=== PATIENT | female | born 1980 | race Caucasian/White ===

== ENCOUNTER 2019-11-09 16:22 | Outpatient (CLI) | payer OTHER, SELFPAY ==
--- NOTE | ~2019-11-09 | US_ITS ---
EXAMINATION: US OB <= 14 weeks fetus DATE: 11/09/2019 17:00 INDICATION: with inconclusive viability during early second trimester TECHNIQUE: Real-time pelvic ultrasound utilizing transabdominal probe was performed. The janet kang radiologist was not present for the study. COMPARISON: None. FINDINGS: There is a single living fetus in breech presentation. The placenta is fundal. There is no evident f etal heart motion on color Doppler consistent with demise. The amniotic fluid is subjectively n ormal. There are at least 6 hypoechoic uterine fibroids the largest measuring up to 5.9 cm and 4.2 cm . The left and right ovaries are not visualized. The following biometric data were obtained: BPD: 2.3 cm -> 13 weeks 6 days Head circumference: 8.3 cm -> 13 weeks 4 days Abdominal circumference: 7.8 cm -> 14 weeks 1 days Femur length: 1.2 cm -> 13 weeks 4 days These measurements are concordant. Head circumference to abdominal circumference ratio: 1.06 (normal range 1.10-1.34). Estimated weight: 84 g (+/-) 13 g. IMPRESSION: 1. Single fetus of 13 weeks and 6 days estimated gestational age with no discernible heart motion on color Doppler consistent with demise. 2. Fibroid uterus. Reviewed, dictated and finalized at location A. IMPRESSION: 1. Single fetus of 13 weeks and 6 days estimated gestational age with no discer nible heart motion on color Doppler consistent with demise. 2. Fibroid uterus.
== END 2019-11-09 16:23 | disposition home or self-care (01) ==
PROVIDERS: PCP Internal Medicine; Visit Provider Obstetrics & Gynecology
DX: Z34.91 Encounter for supervision of normal pregnancy, unspecified, first trimester (principal); Z3A.13 13 weeks gestation of pregnancy
CPT/HCPCS: 76801

== ENCOUNTER 2019-11-15 07:08 | Inpatient (IN) | payer OTHER, SELFPAY ==
[2019-11-15] VITALS (114 sets, daily range): BP systolic 81–131; BP diastolic 30–74; PULSE 65–178; RESP 16–20; TEMP 36.4–38.1; O2SAT 97–100; BMI 24.9
[2019-11-15 08:35] LABS: Basophils Percent Auto 0.6 % (0.2-1.2); Eosinophils Absolute Auto 0.1 K/mm3 (0-0.3); Eosinophils Percent Auto 1.6 % (0-4.4); Hematocrit 35.9 % (37.0-47.0); Hemoglobin 12.5 g/dL (12.0-15.0); Immature Granulocyte Absolute 0.02 K/mm3 (0.00-0.031); Immature Granulocyte Percent A 0.4 % (0-0.5); Lymphocytes Absolute Auto 0.97 K/mm3 (0.9-3.2); Lymphocytes Percent Auto 19.6 % (18.3-44.2); Mean Corpuscular HGB Conc 34.8 g/dl (32-36); Mean Corpuscular Hemoglobin 31.7 pg (26-34); Mean Corpuscular Volume 91.1 fl (80-100); Mean Platelet Volume 10.4 fl (7.4-10.4); Monocytes Absolute Auto 0.4 K/mm3 (0.1-0.6); Monocytes Percent Auto 8.7 % (2.6-8.5); Neutrophils Absolute Auto 3.4 K/mm3 (1.3-6.7); Neutrophils Percent Auto 69.1 % (45.5-73.1); Platelet Count Result 217 k/mm3 (150-375); Red Blood Count 3.94 M/mm3 (4.2-5.4)
[2019-11-15 08:49] LABS: Glucose 98 mg/dL (65-105)
[2019-11-15 09:29] LABS: HIV 1/2 Ab P24 Ag Result Negative (Negative)
[2019-11-15] MEDS: miSOPROStol 200 MCG TABLET 400 MCG VAGINAL (09:29)
[2019-11-15 09:49] LABS: Free T4 Free Thyroxine 0.96 ng/mL (0.78-2.19)
[2019-11-15] MEDS: ACETAMINOPHEN 325 MG TABLET 650 MG PO (13:10)
--- NOTE | 2019-11-15 15:10 | WPDANESEPP ---
Anes - Eval Pre Procedure Procedure: labor epidural Date/Time: 11/15/19 15:10 Surgeon: Dr Galarza Preop Diagnosis: IUFD, labor pain Pre Op Diagnosis: demise Patient Data Age: 39 Gender: F Height: 5 ft 6 in Weight: 70 kg Last Vital Signs Temp 37.7 C H 11/15/19 15:07 Pulse 75 11/15/19 15:09 BP 109/50 L 11/15/19 15:09 Pulse Ox 100 11/15/19 15:10 Allergies Allergy/AdvReac Type Severity Reaction Status Date / Time latex Allergy Intermediate rash Verified 11/10/19 10:07 Penicillins Allergy Intermediate hives Verified 11/10/19 10:07 mahamed Allergy Swelling Verified 11/15/19 11:11 Home Medications Medication Instructions Recorded Confirmed Type No Home Medications 11/09/19 11/09/19 History Laboratory Tests 11/15/19 11/15/19 11/15/19 08:26 08:26 08:26 WBC 5.0 K/mm3 K/mm3 (4.5-10.0) RBC 3.94 M/mm3 L M/mm3 (4.2-5.4) Hgb 12.5 g/dL g/dL (12.0-15.0) Hct 35.9 % L % (37.0-47.0) MCV 91.1 fl fl (80-100) MCH 31.7 pg pg (26-34) MCHC 34.8 g/dl g/dl (32-36) RDW 13.0 % % (11.5-14.5) Plt Count 217 k/mm3 k/mm3 (150-375) MPV 10.4 fl fl (7.4-10.4) Immature Gran % (Auto) 0.4 % % (0-0.5) Neut % (Auto) 69.1 % % (45.5-73.1) Lymph % (Auto) 19.6 % % (18.3-44.2) [place] % (Auto) 8.7 % H % (2.6-8.5) Eos % (Auto) 1.6 % % (0-4.4) Baso % (Auto) 0.6 % % (0.2-1.2) Lymph # (Auto) 0.97 K/mm3 K/mm3 (0.9-3.2) [place] # (Auto) 0.4 K/mm3 K/mm3 (0.1-0.6) Eos # (Auto) 0.1 K/mm3 K/mm3 (0-0.3) Baso # (Auto) 0.0 K/mm3 K/mm3 (0.0-0.1) Abs Immat Gran (auto) 0.02 K/mm3 K/mm3 (0.00-0.031) Absolute Neuts (auto) 3.4 K/mm3 K/mm3 (1.3-6.7) Absolute Nucleated RBC 0.0 K/mm3 K/mm3 (0.0-0.012) Nucleated RBC % 0.0 % % (0.0-0.2) LA PTT Screen Pending dRVVT Screen Pending dRVVT Additional Test Pending Lupus Anticoag Interp Pending Glucose 98 mg/dL mg/dL (65-105) TSH 1.790 uIU/mL uIU/mL (0.465-4.680) Free T4 Beta-2-GPI IgG Ab Beta-2-GPI IgA Ab Beta-2-GPI IgM Ab Anti-Cardiolipin IgG Ab Anti-Cardiolipin IgA Ab Anti-Cardiolipin IgM Ab RPR CMV IgG Ab CMV IgM Ab HIV 1&2 Ab/P24 Ag 4thGn Blood Type Antibody Screen KB Hemoglobin 11/15/19 11/15/19 11/15/19 08:26 08:26 08:26 WBC RBC Hgb Hct MCV MCH MCHC RDW Plt Count MPV Immature Gran % (Auto) Neut % (Auto) Lymph % (Auto) [place] % (Auto) Eos % (Auto) Baso % (Auto) Lymph # (Auto) [place] # (Auto) Eos # (Auto) Baso # (Auto) Abs Immat Gran (auto) Absolute Neuts (auto) Absolute Nucleated RBC Nucleated RBC % LA PTT Screen dRVVT Screen dRVVT Additional Test Lupus Anticoag Interp Glucose TSH Free T4 0.96 ng/mL ng/mL (0.78-2.19) Beta-2-GPI IgG Ab Pending Beta-2-GPI IgA Ab Pending Beta-2-GPI IgM Ab Pending Anti-Cardiolipin IgG Ab Anti-Cardiolipin IgA Ab Anti-Cardiolipin IgM Ab RPR Pending CMV IgG Ab Pending CMV IgM Ab Pending HIV 1&2 Ab/P24 Ag 4thGn Blood Type Antibody Screen KB Hemoglobin 11/15/19 11/15/19 11/15/19 08:26 08:27 08:27 WBC
[2019-11-15] MEDS: LACTATED RINGERS 1,000 ML 30 ML IV CONT (16:45)
--- NOTE | 2019-11-15 16:47 | PM.IMHP ---
H&P: HPI History of Present Illness Date/Time: 11/15/19 16:47 Patient is a 39 year old LMP 07/31/19 with LU 05/07/19 who presented to L&D for IOL secondary to IUFD. Patient was seen in the office for an initial OB visit on 11/09/19. Uterine size was seemingly large for presumed gestational age and heart tones were unable to be obtained with doppler. Patient was sent for an ultrasound which confirmed an IUFD measuring 13w6d as well as a fibroid uterus. Discussion had with patient regarding management options and decision was made to admit patient for a scheduled induction of labor. Patient was admitted to L&D and induction of labor was started with cytotec. Patient received cytotec 400mcg vaginally x 1 dose. She became uncomfortable and requested an epidural for pain management, which was placed. Patient delivered fetus by RN at ?. This MD was notified and came to hospital. Upon arrival, fetus was wrapped in blanket. The cord had been clamped and cut and was protruding though patient's vagina. Patient was repositioned in dorsal lithotomy for a thorough exam. On bimanual exam, cervical os was noted to be almost closed and barely fingertip dilated and firm. Unable to dilate cervix manually at bedside. Patient also mildly-moderately uncomfortable during bimanual exam, even with epidural. Patient's last temp just prior to delivery was also slightly elevated at 100.5. Discussion had with patient regarding the undelivered placenta and best way to evacuate the uterus. Decision made to proceed with a suction dilation and curettage. Chief complaint: demise Narrative: Julia Clemente is a 39 year old female Review of Systems Review of Systems: All systems reviewed & are unremarkable except as noted in HPI and below Constitutional: Constitutional: Reports as per HPI, Reports no additional constitutional complaints, Denies chills, Denies fever(s), Denies headache(s) and Denies night sweats Eyes: Eyes: Reports as per HPI and Reports no additional eye complaints ENT: Reports system reviewed and no additional complaints, except as documented, Reports as per HPI, Reports Normal hearing present and Denies headache(s) Cardiovascular: Cardiovascular: Reports as per HPI, Reports no additional cardiovascular complaints, Denies chest pain and Denies dyspnea Respiratory: Respiratory: Reports as per HPI, Reports no additional respiratory complaints, Denies cough and Denies dyspnea Gastrointestinal: Gastrointestinal: Reports as per HPI, Reports no additional gastrointestinal complaints, Denies abdominal pain, Denies change in bowel habits, Denies change in stool character, Denies nausea and Denies vomiting Genitourinary: Genitourinary: Reports no additional female genitourinary complaints, Reports as per HPI, Denies abnormal vaginal bleeding, Denies genital lesions, Denies hot flashes, Denies dyspareunia, Denies pelvic pain, Denies sexual dysfunction, Denies urinary incontinence, Denies vaginal discharge, Denies vaginal dryness and Denies vaginal odor Musculoskeletal: Musculoskeletal: Reports no additional musculoskeletal complaints and Reports as per HPI Integumentary/Breasts: Skin/Breast: Reports system reviewed and no additional complaints, except as docu, Reports as per HPI, Denies breast pain and Denies nipple discharge Neurologic: Reports system reviewed and no additional complaints, except as documented, Reports as per HPI, Reports Normal hearing present and Denies headache(s) Psychiatric: Psychiatric: Reports no additional psychiatric complaints, Reports as per HPI, Denies anxiety and Denies depression Endocrine: Endocrine: Reports no additional endocrine complaints and Reports as per HPI Hematologic/Lymphatic: Hematologic/Lymphatic: Reports no additional hematologic/lymphatic complaints and Reports as per HPI Allergic/Immunologic: Allergic/Immunologic: Reports no additional allergic/immunologic complaints and Reports as per HPI PMFSH Past Medical History M
--- NOTE | 2019-11-15 16:49 | WPDANESEFPP ---
Anes - Eval Final PreProcedure Day of Procedure 11/15/19 16:49 Patient weight: normal Heart: regular rate and rhythm Lungs: clear to auscultation and normal air movement Airway: Mallampati scale class II Neurological: alert and oriented Last oral intake: >/= 8 hours ASA classification: II Emergent: yes Anesthetic plan: proceed Anesthesia type and monitoring: regional epidural and standard monitoring Informed Consent: The patient's anesthetic plan and its attendant risks and benefits were discussed with the patient/family/POA. Questions were solicited and answers provided to the satisfaction of the patient/family/POA.
--- NOTE | 2019-11-15 17:25 | PC.NURSE ---
Instrumentation Chemist notified of demise.
--- NOTE | 2019-11-15 17:41 | P.PNOB_ITS ---
OB - PN: Subj Subjective Date/time seen: 11/15/19 0645 I talked with patient. She just had SROM. Discussed pain options. She has opted for epidural. Continue cytotec if needed after epidural. OB - PN: Obj Data Labs CBC & Chem 7: 11/15/19 08:26 11/15/19 08:26 Labs: Laboratory Results - last 24 hr 11/15/19 11/15/19 11/15/19 08:26 08:26 08:26 WBC 5.0 RBC 3.94 L Hgb 12.5 Hct 35.9 L MCV 91.1 MCH 31.7 MCHC 34.8 RDW 13.0 Plt Count 217 MPV 10.4 Immature Gran % (Auto) 0.4 Neut % (Auto) 69.1 Lymph % (Auto) 19.6 White % (Auto) 8.7 H Eos % (Auto) 1.6 Baso % (Auto) 0.6 Lymph # (Auto) 0.97 White # (Auto) 0.4 Eos # (Auto) 0.1 Baso # (Auto) 0.0 Abs Immat Gran (auto) 0.02 Absolute Neuts (auto) 3.4 Absolute Nucleated RBC 0.0 Nucleated RBC % 0.0 Glucose 98 TSH 1.790 Free T4 0.96 HIV 1&2 Ab/P24 Ag 4thGn Blood Type Antibody Screen KB Hemoglobin 11/15/19 11/15/19 08:26 08:27 WBC RBC Hgb Hct MCV MCH MCHC RDW Plt Count MPV Immature Gran % (Auto) Neut % (Auto) Lymph % (Auto) White % (Auto) Eos % (Auto) Baso % (Auto) Lymph # (Auto) White # (Auto) Eos # (Auto) Baso # (Auto) Abs Immat Gran (auto) Absolute Neuts (auto) Absolute Nucleated RBC Nucleated RBC % Glucose TSH Free T4 HIV 1&2 Ab/P24 Ag 4thGn Negative Blood Type A Positive Antibody Screen Negative KB Hemoglobin Negative OB - PN A/P Time Spent With Patient Time: Total time spent is greater than 50% in coordination of care (as documented) at patient's floor/unit and/or counseling patient:
--- NOTE | 2019-11-15 18:03 | P.OP_ITS ---
Procedure Note - Detailed Date of procedure: 11/15/19 Pre-op diagnosis: demise retained products of conception Post-op diagnosis: same Procedure performed: Suction dilation and curettage Description of procedure: The patient was taken to the operating room where she was transferred to the operating room table. Patient was placed in dorsal supine position. Anesthesia was administered and found to be adequate. Patient was repositioned in dorsal lithotomy position using Alex stirrups. She was prepped and draped in the usual sterile fashion. A silicone catheter was used to drain the bladder for 100 cc of light yellow urine. A bivalve speculum was inserted into the vagina. The cervix was well visualized. The anterior lip of the cervix grasped with a single-tooth tenaculum. A paracervical block was performed with 1% lidocaine. 5 cc of lidocaine was administered on either side for a total of 10 cc. The cervix was serially dilated to accommodate a size 9 rigid suction curette. The curette was introduced into the endometrial cavity and connected to suction tubing. The suction device was activated and the curette was rotated to clear the cavity of products of conception. The cavity was noticeably distorted by palpable fibroids. A scant amount of products of conception was obtained. The amount of products of conception was seemingly less than expected and an ultrasound was requested and brought into the operating room. Ultrasound was performed and under ultrasound guidance, the curette was reintroduced into the endometrial cavity and rotated. A Espinoza uterine sharp curette was also introduced into the cavity and all quadrants were explored. A gritty texture was noted in every aspect along the cavity. Procedure was deemed complete. The tenaculum was removed from the anterior lip of the cervix. A minimal amount of oozing was noted from one of the tenaculum puncture sites. Bleeding was made hemostatic with silver nitrate. The vagina was cleansed and dried. The bivalve speculum was removed. The remainder of the patient was cleansed and dried. She was taken out of the dorsal lithotomy position and awakened from anesthesia without difficulty. She was transported to the [facility] in stable condition. All instrument counts were correct at the end of the procedure. Anesthesia: MAC and epidural Surgeon: Anna Tineo MD Estimated blood loss (mL): 20 IV fluids (mL): 800 Urine output (mL): 400 Drains: No Packing: No Pathology: yes (products of conception) Complications: No immediate complications Condition: stable Disposition: PACU
--- NOTE | 2019-11-15 18:35 | SUR.PHASEI ---
[id number] sbar faxed floor notified
--- NOTE | 2019-11-15 19:10 | PC.NURSE ---
Patient arrived to OB unit. Patient sleeping upon arrival, patient aroused by voice. Patient alert and oriented x4. Patient denies pain. Lung sounds are clear. Bowel sounds active x4 quadrants. Lochia is scant. Patient states legs are numb and is unable to move them.
[2019-11-15] MEDS: IBUPROFEN 600 MG TABLET PO (20:12)
--- NOTE | 2019-11-15 20:18 | PC.NURSE ---
Patient tolerating clear liquids without complaint of nausea/emesis.
--- NOTE | 2019-11-16 00:55 | PC.NURSE ---
Pt ambulated to bathroom. pt had clot the size of a golf ball. No active bleeding noted.
[2019-11-16 07:53] VITALS: BP 111/63; PULSE 69
[2019-11-16] MEDS: IBUPROFEN 600 MG TABLET PO ×2 (07:54→13:51)
[2019-11-16 08:07] VITALS: TEMP 36.9
--- NOTE | 2019-11-16 08:35 | PC.NURSE ---
Met with pt and her yesterday; Share program and support presented to them. They seemed attentive to the information, and appreciative, but pt stated I'll be fine . Initially pt did not give consent for pictures to be taken of the baby. After delivery, pt and briefly held , and then pt asked for photos to be taken of just the baby. Consent signed, and this was done for her. Today, pt alone, her had to work last evening. I visited with pt briefly; with her permission, she was shown several of the things used in the photos yesterday. Mother a little tearful. Share support offered once pt leaves the hospital. Pt declined and consent was not signed. She stated I'll be fine . With pt's consent, the mementos and the pt Share folder of information/handouts, including Share contact information, were shown to her and left at the bedside; pt given the option to take them home with her or leave them. Nurse reassured pt that if pt wants to contact me at any point, she is welcome to do so. Pt voiced understanding.
--- NOTE | 2019-11-16 08:57 | PC.NURSE ---
0840--Epidural cath pulled, tip intact, bandaid applied, site WNL.
[2019-11-16 09:05] LABS: Rapid Plasma Reagin Non-Reactive (NonReactive)
--- NOTE | 2019-11-16 09:50 | PM.OBPNVD ---
OB - PN: Subj Subjective Date/time seen: 11/16/19 09:50 Pt seen at bedside. Reports mild lower abdominal pain and mild back pain from epidural placement. Passed two moderate sized blood clots overnight. Denies any further bleeding. Denies any headache, chest pain, SOB, N/V. OB - PN: Obj Data Labs CBC & Chem 7: 11/15/19 08:26 11/15/19 08:26 Labs: Laboratory Results - last 24 hr 11/15/19 11/15/19 08:26 08:27 RPR Non-reactive KB Hemoglobin Negative OB - PN A/P Assessment and Plan (1) IUFD at less than 20 weeks of gestation: Code(s): O02.1 - Missed Status: Acute Assessment and Plan: pt doing well may be discharged home in stable condition f/u in office in 1 week (2) S/P dilation and curettage: Code(s): Z98.890 - Other specified postprocedural states Status: Acute Time Spent With Patient Time: Total time spent is greater than 50% in coordination of care (as documented) at patient's floor/unit and/or counseling patient: Exam Const: General: comfortable and no acute distress GI: GI Palp: Yes Soft to palpation and No Tenderness to palpation present (GI) Extrem: Right lower extremity: no edema Left lower extremity: no edema
--- NOTE | 2019-11-16 14:13 | PC.NURSE ---
1330--IV DC'd and DC instructions reviewed with pt., pt. verbalizes understanding.
[2019-11-17 20:50] LABS: Lupus dRVVT 1:1 Mix Interpreta Not Indicated; Lupus dRVVT Screen 42 sec (<=45); PTT-LA Screen 31 sec (<=40)
[2019-11-18 02:53] LABS: Anti Cardio Antibody IgM <12 MPL (<=12); Anti Cardiolipin Antibody IgA <11 APL (<=11); Anti Cardiolipin Antibody IgG <14 GPL (<=14)
[2019-11-18 08:31] LABS: CMV IgM Antibody <30.00 AU/mL (<30.00)
--- NOTE | 2019-12-14 11:57 | PM.OBDSVD ---
DS: Admitting Diagnosis Admitting Diagnosis Admitting Diagnosis: demise OB - DS: Summary OB Procedures : None OB Procedures Intrapartum: Other OB Procedures: : None Peripartum Data Procedures: Procedures Operation Date: 11/15/19 16:30 Actual Procedures Side Surgeon p Suction Dilation Curettage Not Applicable Anna Tineo MD Time Spent with Patient Time attestation: Total time spent providing and/or coordinating discharge services: DS: Data Data Completed and Pending Completed studies during hospitalization: Pending at discharge 11/15/19 17:18 Surgical [PTH] Routine Surgical [PTH] Routine Discharge Plan Discharge Attending physician on discharge: Anna Tineo Consulting providers: Rico Cole Discharging Clinician: Anna Tineo Anticipated Discharge Date/Time: 11/16/19 11:58 Patient Disposition: Home, Self-Care Activity: as tolerated Diet: as tolerated and regular Discharge Instructions: Follow-Up: Appointment with Dr. Galarza November 24 at 3:00 in [facility] to [facility] for a follow-up visit: Appointment Date/Time: at What to expect at your follow-up visit: Call [phone] if you are unable to keep your appointment time. EPISIOTOMY/PERINEAL CARE: * Until bleeding stops, use your hiro bottle after urinating * Change your pad frequently throughout the day * You may take sitz baths several times a day (fill your bathtub with warm water and soak for 20 minutes.) Do NOT bathe in the water * No tub baths until seen by your physician - You may shower BLEEDING: * Each individual will experience vaginal bleeding, but it will vary with each situation and individual woman. * Vaginal bleeding will go thru cycles-from bright red, to pinkish to a white, creamy discharge. This is considered normal. You may also experience a brownish discharge which is also normal. DIET AND NUTRITION: * Eat at least 3 regular, well-balanced meals per day: include all 4 food groups daily. * You may prefer 6 small meals. * Drink 6-8 glasses of water or non-caffeinated beverages per day. * Loss of appetite is common with loss. We encourage you to try to eat; this will help with both your physical and emotional health. ACTIVITY: * Rest as much as possible during the day. * Do not exercise or lift anything heavier than 10 pounds (such as laundry or other children.) * Avoid stairs or driving as much as possible, especially if you are taking pain medication. * Do not put anything into the vagina. No douching, tampons, or sexual activity until seen and released by your physician. * Listen to your body, and do not do what is uncomfortable or painful. EMOTIONAL HEALTH: * This is a very difficult and sad time for you and your family, friends, and other children. It may be helpful to refer to the booklets on loss that you received. * It is okay to be sad and to cry. Denial, anger, and guilt are also normal stages that you and your family may go thru during this time. Each person reaches these stages at their own pace. * Keep the lines of communication open between family and friends, and ask for help if needed. NOTIFY PHYSICIAN IF YOU HAVE ANY QUESTIONS OR IF ANY OF THE FOLLOWING SYMPTOMS OCCUR: * If your episiotomy or incision becomes red, swollen, or more painful than what you have experienced in the hospital. * If your vaginal bleeding becomes foul smelling. * If your vaginal bleeding becomes more heavy than a period or if your bleeding changes from pink to bright red. However, you may pass an occasional walnut-sized clot once or twice for the first week . * If you experience a sharp, shooting pain in you calves. * If you discover a hard, reddened area on your breast or if you experience flu-like symptoms. * If you develop a temperature of 100.4 or greater. * If you are unable to eat or sleep an
== END 2019-11-16 14:05 | disposition home or self-care (01) | DRG 770 ==
PROVIDERS: Admitting Provider Obstetrics & Gynecology; PCP Internal Medicine; Visit Provider Student in an Organized Health Care Education/Training Program
PROC: 10D17ZZ Extraction of Products of Conception, Retained, Via Natural or Artificial Opening (ICD-10-PCS; principal; 2019-11-15 16:30)
DX: O02.1 Missed abortion (principal); Z3A.15 15 weeks gestation of pregnancy; D25.9 Leiomyoma of uterus, unspecified; O34.12 Maternal care for benign tumor of corpus uteri, second trimester
CPT/HCPCS: 36415; 82947; 84439; 84443; 85025; 85460; 85613; 85730; 86146; 86147; 86592; 86644; 86645; 86703; 86850; 86900; 86901; 88233; 88304; 88305; A9270; G0432; J2250; J2704; J2795; J3010; J7120

== ENCOUNTER 2019-11-19 10:23 | Outpatient (CLI) | payer OTHER, SELFPAY ==
[2019-11-19 10:51] LABS: Hematocrit 35.2 % (37.0-47.0); Hemoglobin 12.3 g/dL (12.0-15.0); Mean Corpuscular HGB Conc 34.9 g/dl (32-36); Mean Corpuscular Hemoglobin 32.5 pg (26-34); Mean Corpuscular Volume 92.9 fl (80-100); Platelet Count Result 239 k/mm3 (150-375); Red Blood Count 3.79 M/mm3 (4.2-5.4); Red Cell Distribution Width 12.9 % (11.5-14.5); White Blood Count 11.1 K/mm3 (4.5-10.0)
== END 2019-11-19 10:24 | disposition home or self-care (01) ==
LOC: ANHLAB 10:25
PROVIDERS: PCP Internal Medicine; Visit Provider Student in an Organized Health Care Education/Training Program
DX: O02.1 Missed abortion (principal); Z98.890 Other specified postprocedural states
CPT/HCPCS: 36415; 84702; 85027

== ENCOUNTER 2019-11-20 11:19 | Observation (INO) | payer OTHER, SELFPAY ==
[2019-11-20] VITALS (12 sets, daily range): BP systolic 104–124; BP diastolic 54–87; PULSE 67–97; RESP 12–20; TEMP 36.6–37.3; O2SAT 95–100; BMI 25.8
--- NOTE | ~2019-11-20 | US_ITS ---
EXAMINATION: US pelvic complete DATE: 11/20/2019 13:42 INDICATION: Vaginal bleeding, D&C performed on 11/15/2019 TECHNIQUE: Multiple transabdominal and endovaginal sonographic images of the pelvis were obtained. COMPARISON: None. FINDINGS: The uterus measures 15 x 8 x 11 cm. There are multiple uterine fibroids, the largest of whi ch is a subserosal fibroid in the posterior body of the lower uterus measuring up to 5.2 cm. The echo genic endometrial complex measures 2.5 cm. The right ovary measures 2.3 x 0.9 x 2.4 cm. The left ovar y measures 2.8 x 1.3 x 1.9 cm. There is normal vascular flow in the ovaries. There is no free fluid i n the pelvis. IMPRESSION: 1. Thickened and echogenic endometrial complex which could reflect post procedure hemorrhage versus r etained products of conception. Reviewed, dictated and finalized at location A. IMPRESSION: 1. Thickened and echogenic endometrial complex which could reflect post procedu re hemorrhage versus retained products of conception.
--- NOTE | ~2019-11-20 | XR_ITS ---
EXAMINATION: XR chest 1V portable INDICATION: Fever TECHNIQUE: Portable AP chest at 1202 hours COMPARISON: None available FINDINGS: The lungs are free of acute opacities. There is no pleural effusion or pneumothorax. The ca rdiomediastinal silhouette is normal. The visualized bones and soft tissues are unremarkable. IMPRESSION: 1. No acute cardiopulmonary abnormality. Reviewed, dictated and finalized at location A.
--- NOTE | 2019-11-20 11:22 | ED.GENADULT ---
HPI - General Adult General Chief complaint: Abdominal Pain Stated complaint: Post Op Complications Time Seen by Provider: 11/20/19 11:21 Source: patient Mode of arrival: ambulatory Limitations: no limitations History of Present Illness HPI narrative: The patient is a 39 year old 2012 who presents to the emergency department for evaluation of lower abdominal pain. Patient reportedly had intrauterine demise at 13 weeks, had induction of labor with Dr. Anna Tineo that eventually required dilatation and curettage under generalized anesthesia on 11/17. Patient continues to report pain and cramping. She reports heavy bleeding and clotting. Patient reports continued fevers with maximum temperature 102 Fahrenheit this morning. Patient reports myalgias, headache, back pain. Not currently on any antibiotics. She takes ibuprofen and Tylenol which does greatly relieve her symptoms. She denies any foul-smelling vaginal discharge. Related Data Allergies Allergy/AdvReac Type Severity Reaction Status Date / Time latex Allergy Intermediate rash Verified 11/10/19 10:07 Penicillins Allergy Intermediate hives Verified 11/10/19 10:07 mahamed Allergy Swelling Verified 11/15/19 11:11 Review of Systems Review of Systems: Narrative: CONSTITUTIONAL: Reports fever and chills ENT: Denies rhinorrhea, congestion, sore throat, or otalgia. CARDIOVASCULAR: Denies chest pain, palpitations, or edema. RESPIRATORY: Denies cough or shortness of breath. GASTROINTESTINAL: Reports lower pelvic pain, denies nausea or vomiting GENITOURINARY: Denies dysuria or hematuria. SKIN: Denies rash or itching. MUSCULOSKELETAL: Reports back pain, diffuse joint pain and myalgias NEUROLOGIC: Reports mild headache without numbness, or weakness. [facility] Past Medical History Medical History AVM (arteriovenous malformation) IUFD at less than 20 weeks of gestation Missed No active medical problems Retained products of conception after miscarriage Surgical History Surgical History Hx of brain surgery AVM Dwyane surgery S/P appendectomy S/P dilation and curettage Social History Social History Smoking status: Never smoker Second hand tobacco smoke exposure: Yes Substance use: never Substance use type: does not use Gender identity (if verbalized by the patient): Female Spiritual care concerns: No Exam Narrative: Exam Narrative: GENERAL: Awake, alert, conversant HEAD: Normocephalic, atraumatic. EYES: PERRLA and EOMI. ENT: Nares clear, no rhinorrhea or epistaxis. Mucous membranes moist. NECK: Supple. CHEST: No respiratory distress, breathing even and non labored HEART: Regular rate, sinus rhythm ABDOMEN:Non distended, non tender Pelvic: Labia majora and minora normal without lesions. Vagina with small blood clot present, no brisk bleeding. No cervical motion tenderness. Os dilated to 3 cm. No adnexal tenderness or fullness bilaterally. No mucopurulent discharge present. EXTREMITIES: Normal range of motion. No edema. SKIN: Warm, dry, no rash. NEURO:No focal deficits. Alert and oriented x3 Course Vital Signs Vital signs: Vital Signs Temperature 37.3 C 11/20/19 11:23 Pulse Rate 97 11/20/19 11:23 Respiratory Rate 20 11/20/19 11:23 Pulse Oximetry 96 11/20/19 11:23 Temperature 37.3 C 11/20/19 11:23 Pulse Rate 97 11/20/19 11:23 Respiratory Rate 20 11/20/19 11:23 Pulse Oximetry 96 11/20/19 11:23 Medical Decision Making MDM Narrative Medical decision making narrative: Patient presenting for recurrent fever, abdominal and pelvic pain in the setting of recent dilatation and curettage due to intrauterine demise. The time of assessment, patient's vital signs are stable. She is afebrile, no tachycardia. Laboratory results show stable anemia. We will
[2019-11-20] MEDS: SODIUM CHLORIDE 0.9% IV 1,000 ML 999 ML IV CONT (12:03)
[2019-11-20 12:14] LABS: Basophils Percent Auto 0.3 % (0.2-1.2); Eosinophils Percent Auto 0.1 % (0-4.4); Hematocrit 34.3 % (37.0-47.0); Hemoglobin 11.8 g/dL (12.0-15.0); Immature Granulocyte Absolute 0.04 K/mm3 (0.00-0.031); Immature Granulocyte Percent A 0.4 % (0-0.5); Lymphocytes Absolute Auto 0.49 K/mm3 (0.9-3.2); Lymphocytes Percent Auto 5.3 % (18.3-44.2); Mean Corpuscular HGB Conc 34.4 g/dl (32-36); Mean Corpuscular Hemoglobin 32.1 pg (26-34); Mean Corpuscular Volume 93.2 fl (80-100); Mean Platelet Volume 10.2 fl (7.4-10.4); Monocytes Absolute Auto 0.6 K/mm3 (0.1-0.6); Monocytes Percent Auto 6.3 % (2.6-8.5); Neutrophils Absolute Auto 8.2 K/mm3 (1.3-6.7); Neutrophils Percent Auto 87.6 % (45.5-73.1); Platelet Count Result 223 k/mm3 (150-375); Red Blood Count 3.68 M/mm3 (4.2-5.4); Red Cell Distribution Width 12.8 % (11.5-14.5); White Blood Count 9.3 K/mm3 (4.5-10.0)
[2019-11-20 12:25] LABS: Partial Thromboplastin Time 25.5 SECONDS (22.3-36.8); Prothrombin Time 13.3 Seconds (11.1-14.7)
[2019-11-20 12:32] LABS: Alanine Aminotransferase 9 U/L (4-35); Albumin Level 3.3 g/dL (3.5-5.1); Alkaline Phosphatase 62 U/L (38-126); Anion Gap 6 mmol/L (8-16); Aspartate Amino Transferase 18 U/L (14-36); Bilirubin,Total 0.3 mg/dL (0.2-1.3); Blood Urea Nitrogen 6 mg/dL (7-17); Calcium 8.9 mg/dL (8.4-10.2); Carbon Dioxide 25 mmol/L (22-30); Chloride 101 mmol/L (98-107); Estimated Glomerular Filt Rate > 60; Glucose 124 mg/dL (65-105); Potassium 3.4 mmol/L (3.4-5.0); Sodium 132 mmol/L (137-145)
[2019-11-20 13:05] LABS: Add Urine Microscopic? YES; Appearance Urine Clear (Clear); Bilirubin Urine Negative (Negative); Blood Urine 2+ (Negative); Color Urine Straw (Yellow); Glucose Urine UA Negative (Negative); Ketones Urine Negative (Negative); Leukocyte Esterase Ur 1+ LEU/UL (Negative); Mucus Urine Rare /lpf; Nitrate Urine Negative (Negative); Protein Urine Negative (Negative); RBC Urine 0-2 /hpf (0-2); Squamous Epithelial Cell Urine Occasional /hpf (Few); Urobilinogen Urine Negative mg/dL (<2.0)
[2019-11-20 13:16] LABS: Specific Grav Ur 1.004 (1.001-1.035)
[2019-11-20] MEDS: SODIUM CHLORIDE 0.9% IV 1,000 ML 150 ML IV CONT (15:01)
--- NOTE | 2019-11-20 15:05 | PM.IMHP ---
H&P: HPI History of Present Illness Date/Time: 11/20/19 15:05 Chief complaint: Post Op Complications Narrative: Julia Clemente is a 39 year old female presented to ER due to increasing bleeding, pain and fever at home. She reports passing clots at home. She is status post currettage for retained placenta after delivery of 13-14 week demise by cytotec. During the procedure which was done with ultrasound guided, it was significant for minimal placental tissue. This was confirmed with pathology showing no chorionic villi. She had been informed of risk of retained tissue. She has a large fibroid uterus distorting the endometrial cavity. In ED the ultrasound show 2.5cm of echogenic material possible clot and or retained tissue. She is hemodynamicly stable. No signs of sepsis. Review of Systems Review of Systems: All systems reviewed & are unremarkable except as noted in HPI and below Constitutional: Constitutional: Reports no additional constitutional complaints, Reports fatigue and Reports fever(s) Cardiovascular: Cardiovascular: Denies chest pain and Denies dyspnea Respiratory: Respiratory: Reports no additional respiratory complaints, Reports cough, Denies dyspnea and Reports other Gastrointestinal: Gastrointestinal: Reports abdominal pain Genitourinary: Genitourinary: Reports no additional female genitourinary complaints and Reports as per HPI Musculoskeletal: Musculoskeletal: Reports no additional musculoskeletal complaints Neurologic: Reports system reviewed and no additional complaints, except as documented Psychiatric: Psychiatric: Reports no additional psychiatric complaints Endocrine: Endocrine: Reports no additional endocrine complaints PMF Past Medical History Medical History AVM (arteriovenous malformation) IUFD at less than 20 weeks of gestation Missed No active medical problems Retained products of conception after miscarriage Surgical History Surgical History Hx of brain surgery AVM Dwayne surgery S/P appendectomy S/P dilation and curettage Social History Social History Smoking status: Never smoker Second hand tobacco smoke exposure: Yes Substance use: never Substance use type: does not use Gender identity (if verbalized by the patient): Female Spiritual care concerns: No Meds Home Medications and Allergies Home Medications Medication Instructions Recorded Confirmed Type acetaminophen 1,000 mg PO Q6H PRN tablet 11/16/19 Rx ibuprofen 600 mg PO Q6H PRN tablet 11/16/19 Rx Allergies Allergy/AdvReac Type Severity Reaction Status Date / Time latex Allergy Intermediate rash Verified 11/10/19 10:07 Penicillins Allergy Intermediate hives Verified 11/10/19 10:07 mahamed Allergy Swelling Verified 11/15/19 11:11 Vital Signs Vital Signs - 24 hr 11/20/19 11:23 Temperature 99.1 F Pulse Rate 97 Respiratory Rate 20 Pulse Oximetry 96 Exam Const: General: no acute distress Orientation/consciousness: oriented to person, oriented to place and oriented to time HENMT: Head: normocephalic and atraumatic Ears: hearing grossly normal bilaterally General nose exam: Normal external nose present Eyes: General: appearance normal, both eyes and all related structures Resp: Effort & Inspection: normal respiratory effort Cardio: Rate: regular rate GI: Other: Irregular shape, mild tenderness, palpable uterus approx 16 week, irreg shape Skin: General skin exam: no rashes or lesions noted Neuro: Cognition (Neuro): normal cognition Extrem: General: normal to inspection Psych: Mental Status: mental status grossly normal H&P: Results Labs Labs: Short CBC 11/20/19 Range/Units 12:02 WBC 9.3 (4.5-10.0) K/mm3 Hgb 11.8 L (12.0-15.0) g/dL Hct 34.3 L (37.0-47.0) % Plt Count 223 (15
--- NOTE | 2019-11-20 16:54 | WPDANESEPPF ---
Anes - Initial Pre Proc Eval Procedure: Operation Date: 11/20/19 16:15 Proposed Procedures p Diagnostic Laparoscopy Pos Lap - Dequan Galarza MD s D&C Suction and Sharp - Dequan Galarza MD Date/Time: 11/20/19 16:54 Surgeon: Dequan Galarza MD Pre Op Diagnosis: Post Op Complications Patient Data Age: 39 Gender: F Height: Weight: Last Vital Signs Temp 37.3 C 11/20/19 11:23 Pulse 75 11/20/19 15:30 Resp 18 11/20/19 15:30 BP 120/87 11/20/19 15:30 Pulse Ox 99 11/20/19 15:30 Allergies Allergy/AdvReac Type Severity Reaction Status Date / Time latex Allergy Intermediate rash Verified 11/10/19 10:07 Penicillins Allergy Intermediate hives Verified 11/10/19 10:07 mahamed Allergy Swelling Verified 11/15/19 11:11 Home Medications Medication Instructions Recorded Confirmed Type acetaminophen 1,000 mg PO Q6H PRN tablet 11/16/19 Rx ibuprofen 600 mg PO Q6H PRN tablet 11/16/19 Rx Laboratory Tests 11/20/19 11/20/19 11/20/19 12:02 12:02 12:02 WBC 9.3 K/mm3 K/mm3 (4.5-10.0) RBC 3.68 M/mm3 L M/mm3 (4.2-5.4) Hgb 11.8 g/dL L g/dL (12.0-15.0) Hct 34.3 % L % (37.0-47.0) MCV 93.2 fl fl (80-100) MCH 32.1 pg pg (26-34) MCHC 34.4 g/dl g/dl (32-36) RDW 12.8 % % (11.5-14.5) Plt Count 223 k/mm3 k/mm3 (150-375) MPV 10.2 fl fl (7.4-10.4) Immature Gran % (Auto) 0.4 % % (0-0.5) Neut % (Auto) 87.6 % H % (45.5-73.1) Lymph % (Auto) 5.3 % L % (18.3-44.2) [place] % (Auto) 6.3 % % (2.6-8.5) Eos % (Auto) 0.1 % % (0-4.4) Baso % (Auto) 0.3 % % (0.2-1.2) Lymph # (Auto) 0.49 K/mm3 L K/mm3 (0.9-3.2) [place] # (Auto) 0.6 K/mm3 K/mm3 (0.1-0.6) Eos # (Auto) 0.0 K/mm3 K/mm3 (0-0.3) Baso # (Auto) 0.0 K/mm3 K/mm3 (0.0-0.1) Abs Immat Gran (auto) 0.04 K/mm3 H K/mm3 (0.00-0.031) Absolute Neuts (auto) 8.2 K/mm3 H K/mm3 (1.3-6.7) Absolute Nucleated RBC 0.0 K/mm3 K/mm3 (0.0-0.012) Nucleated RBC % 0.0 % % (0.0-0.2) PT 13.3 Seconds Seconds (11.1-14.7) INR 1.0 APTT 25.5 SECONDS SECONDS (22.3-36.8) Sodium Potassium Chloride Carbon Dioxide Anion Gap BUN Creatinine Estim Creat Clear Calc Estimated GFR Glucose Calcium Total Bilirubin AST ALT Alkaline Phosphatase Total Protein Albumin Urine Color Urine Appearance Urine pH Ur Specific [place] Urine Protein Urine Glucose (UA) Urine Ketones Ur Blood (Man) Urine Nitrate Urine Bilirubin Urine Urobilinogen Leukocyte Esterase Rfl Urine RBC Urine WBC Ur Squamous Epith Cells Urine Mucus C.trachomatis RNA (TMA) Pending N.gonorrhoeae RNA (TMA) Pending Trichomonas Direct ID 11/20/19 11/20/19 11/20/19 12:02 12:05 12:52 WBC RBC Hgb Hct MCV MCH MCHC RDW Plt Count MPV Immature Gran % (Auto) Neut % (Auto) Lymph % (Auto) [place] % (Auto) Eos % (Auto) Baso % (Auto) Lymph # (Auto) [place] # (Auto) Eos # (Auto) Baso # (Auto) Abs Immat Gran (auto) Absolute Neuts (auto) Absolute Nucleated RBC Nucleated RBC % PT INR APTT
[2019-11-20] MEDS: LACTATED RINGERS 1,000 ML 30 ML IV CONT (17:00)
[2019-11-20] MEDS: CLINDAMYCIN 900 MG/NS 50 ML 900 MG/50 ML PIGGYBACK 50 MG IVPB (17:01)
[2019-11-20] MEDS: METHYLERGONOVINE MALEATE 0.2 MG/ML VIAL IM (17:37)
[2019-11-20] MEDS: KETOROLAC 30 MG/ML VIAL (*BKC) IV PUSH (17:52)
--- NOTE | 2019-11-20 18:28 | PM.PROC ---
Procedure Note - Detailed Date of procedure: 11/20/19 Pre-op diagnosis: Retained products of conception Post-op diagnosis: same Procedure performed: 1. Suction and sharp currettage 2. Diagnostic laparoscopy Description of procedure: After informed consent was obtained, patient was taken to recovery room in stable condition. She was prepped and draped in sterile fashion. Attention was turned to abdomen. Lidocaine was injected 2cm above umbilicus. Small horizontal incision was performed. Varess needle was inserted into abdomen, confirmation into abdomen was obtained with free flow of fluid and normal peritoneal pressures. A pneumoperitoneum of 15mmHG was obtained. A 5mm port was inserted under laparoscopic visualization. She was placed in mild Trendelenburg position. A 5mm port was inserted on the left side under laparoscopic position. Attention was then turned to vagina. Speculum was inserted. A single tooth tenaculum was placed on anterior cervix. The cervix easily passed a 8 wu dilator. A size 14 suction cannula passed while visualizing with ultrasound. Some tissue obtained. The sharp currette was passed and more tissue was obtained at the top of the fundus at the extent that the currette could reach and more placental type tissue was obtained. She was given 0.2mg Methergine which did help contract the uterus and be able to palpate the myometrium during the currettage. The sharp currett was passed while observing with the ultrasound and obtaining tissue, until no echogenic material was seen on ultrasound and there was noted to be good cry. No active bleeding from the os. A figure of eight stitch of 2.0 vicryl was used for hemostasis at the tenaculum site on the cervix that did not respond to pressure. Hemostasis was then noted. Anesthesia: GETA Surgeon: Dequan Galarza MD Estimated blood loss (mL): 200 IV fluids (mL): 800 Drains: No Packing: No Pathology: yes (Retained products) Complications: No immediate complications Condition: stable Disposition: PACU Findings: Cervix was dilated without mechanical dilation easily passed 8 wu dilator. Moderate amount of placental tissue located at the fundus of large uterus. Echogenic material seen on during during the procedure. No echogenic material seen after currettage.
[2019-11-20] MEDS: DEXTROSE 5%/0.45% SOD CHL 1,000 ML 125 ML IV CONT (19:57)
--- NOTE | 2019-11-20 21:39 | PC.NURSE ---
This patient, Julia Clemente, was admitted to Medical [facility] [place] at [place]. Patient/family oriented to hospital policies and general routines including ID bracelet, bed and alarms, visiting hours, pain management, procedures, bathroom and other care routines, personal items, smoking policy, room service/diet, and visiting hours. Valuables list has been completed. Information on how to activate the Rapid Response Team has been discussed. Patient/Family are encouraged to report perceived risks to care and to ask questions if they do not understand what they are told or what they should do.
[2019-11-21 01:21] VITALS: BP 101/58; PULSE 71; RESP 16; TEMP 36.3; O2SAT 98
[2019-11-21] MEDS: DEXTROSE 5%/0.45% SOD CHL 1,000 ML 125 ML IV CONT (05:13)
[2019-11-21] MEDS: KETOROLAC 30 MG/ML VIAL (*BKC) IM (05:13)
[2019-11-21 06:00] VITALS: BP 104/49; PULSE 70; RESP 16; TEMP 36.4; O2SAT 99
[2019-11-21 09:56] LABS: Hematocrit 27.9 % (37.0-47.0); Hemoglobin 9.5 g/dL (12.0-15.0); Mean Corpuscular HGB Conc 34.1 g/dl (32-36); Mean Corpuscular Hemoglobin 32.2 pg (26-34); Mean Corpuscular Volume 94.6 fl (80-100); Mean Platelet Volume 10.3 fl (7.4-10.4); Platelet Count Result 207 k/mm3 (150-375); Red Blood Count 2.95 M/mm3 (4.2-5.4); White Blood Count 6.9 K/mm3 (4.5-10.0)
--- NOTE | 2019-11-21 10:27 | PM.GYNPNOP ---
METALLURGIST PROCESS - A/P Assessment and plan (1) Retained products of conception after miscarriage: Code(s): O03.4 - Incomplete spontaneous without complication Status: Acute Assessment and Plan: She is doing well. Scant blood. Post op anemia- asymptomatic. I discussed her procedure with her yesterday and today. Questions answered. Discharge home today. Discharge precautions discussed. Keep follow up appointment this week. Postoperative Procedures: Procedures Operation Date: 11/20/19 16:15 Actual Procedures Side Surgeon p Diagnostic Laparoscopy Dequan Galarza MD s D&C Suction Dequan Galarza MD Time Spent With Patient Time: Total time spent is greater than 50% in coordination of care (as documented) at patient's floor/unit and/or counseling patient: Time with patient: less than 15 minutes METALLURGIST PROCESS- PN:Subj Post-Op Subjective Date/time seen: 11/21/19 10:27 She states adequate pain control. She has ambulated in the room without problems. She tolerated diet. Minimal bleeding. Exam Const: General: no acute distress, alert and awake Resp: Effort & Inspection: normal respiratory effort GI: Other: soft appropriate tenderness at incision site : Other: Uterus nontender Neuro: General: oriented to person, oriented to place and oriented to time Extrem: General: normal to inspection and no calf tenderness Psych: Mental Status: mental status grossly normal METALLURGIST PROCESS - PN: Obj Data Vital Signs Vital Signs: Vital Signs - 24 hr 11/20/19 11:23 11/20/19 13:00 11/20/19 15:30 Temperature 99.1 F Pulse Rate 97 75 75 Respiratory Rate 20 18 18 Blood Pressure 112/65 120/87 Pulse Oximetry 96 100 99 11/20/19 18:11 11/20/19 18:25 11/20/19 18:40 Temperature 98.8 F Pulse Rate 92 89 77 Respiratory Rate 16 16 12 Blood Pressure 124/65 106/61 Pulse Oximetry 100 100 95 11/20/19 18:55 11/20/19 19:10 11/20/19 19:20 Temperature Pulse Rate 78 79 78 Respiratory Rate 15 16 18 Blood Pressure 108/64 104/57 L 104/58 L Pulse Oximetry 96 95 97 11/20/19 19:42 11/20/19 19:57 11/20/19 20:27 Temperature 97.9 F 98.0 F 98.2 F Pulse Rate 67 73 78 Respiratory Rate 16 16 16 Blood Pressure 112/59 L 112/54 L 115/56 L Pulse Oximetry 100 98 98 11/21/19 01:21 11/21/19 06:00 Temperature 97.3 F L 97.5 F L Pulse Rate 71 70 Respiratory Rate 16 16 Blood Pressure 101/58 L 104/49 L Pulse Oximetry 98 99 Intake/Output Intake/Output: Intake & Output 11/18/19 11/19/19 11/20/19 11/21/19 23:59 23:59 23:59 23:59 Intake Total 1608.75 1550 Output Total 3150 Balance 1608.75 -1600 Meds/Results Medications: Active Medications Generic Name Dose Route Start Last Admin Trade Name Freq PRN Reason Stop Dose Admin Acetaminophen 650 mg 11/20/19 20:29 Tylenol Tablet PO Q4H PRN Pain Rated 1-3 Hydrocodone Bitart/Acetaminophen 1 tab 11/20/19 20:32 [place] 5-325 Mg PO Q4H PRN Pain Rated 7-10 Doxycycline Hyclate 100 mg/ 100 mls @ 100 mls/hr 11/20/19 23:00 11/21/19 09:27 Dextrose IVPB 100 mls/hr Q12HR EFREN Administration Acetaminophen 1,000 mg in 100 mls @ 400 mls/hr 11/20/19 20:28 11/21/19 09:38 Ofirmev 1,000 Mg Ivpb IVPB 11/21/19 20:29 Infused Q6H PRN Infusion Pain Rated 1-3 Ibuprofen 600 mg 11/20/19 20:30 Motrin PO Q6H PRN Cramping Ketorolac Tromethamine 30 mg 11/20/19 20:26 11/21/19 05:13 Toradol Inj IM 30 mg Q6H PRN Administration Pain Rated 4-6 Radiology Results: ITS Impressions Chest X-Ray 11/20/19 12:11 IMPRESSION: 1. No acute cardiopulmonary abnormality. Pelvis Ultrasound 11/20/19 13:56 IMPRESSION: 1. Thickened and echogenic endometrial complex which could reflect post procedure hemorrhage versus retained products of conception. Labs CBC & Chem 7: 11/21/19 09:48 11/20/19 12:02 Labs: Laboratory Results - last 24 hr 11/20/19 11/20/19 09/0
--- NOTE | 2019-11-21 10:36 | PM.DS ---
DS: Admitting Diagnosis Admitting Diagnosis Admitting Diagnosis: Retained products of conception DS: Discharge Diagnosis Discharge Diagnosis (1) Retained products of conception after miscarriage: Code(s): O03.4 - Incomplete spontaneous without complication Status: Acute DS: Summary Time Spent with Patient Time attestation: Total time spent providing and/or coordinating discharge services: Exam Const: General: comfortable and no acute distress Eyes: General: appearance normal, both eyes and all related structures Resp: Effort & Inspection: normal respiratory effort GI: GI Palp: Yes Soft to palpation and No Guarding due to palpation present (GI) Other: appropriate incisional tenderness Skin: General skin exam: normal color Extrem: Other: no calf tenderness Psych: Mental Status: mental status grossly normal DS: Data Data Completed and Pending Pending studies at discharge: Pending at discharge 11/20/19 17:25 Surgical [PTH] Routine Labs on day of discharge: Labs from last 24 hours 11/21/19 11/20/19 11/20/19 09:48 12:52 12:05 WBC 6.9 RBC 2.95 L Hgb 9.5 L Hct 27.9 L MCV 94.6 MCH 32.2 MCHC 34.1 RDW 13.0 Plt Count 207 MPV 10.3 Immature Gran % (Auto) Neut % (Auto) Lymph % (Auto) [place] % (Auto) Eos % (Auto) Baso % (Auto) Lymph # (Auto) [place] # (Auto) Eos # (Auto) Baso # (Auto) Abs Immat Gran (auto) Absolute Neuts (auto) Absolute Nucleated RBC Nucleated RBC % PT INR APTT Sodium Potassium Chloride Carbon Dioxide Anion Gap BUN Creatinine Estim Creat Clear Calc Estimated GFR Glucose Calcium Total Bilirubin AST ALT Alkaline Phosphatase Total Protein Albumin Urine Color Straw Urine Appearance Clear Urine pH 6.0 Ur Specific [place] 1.004 Urine Protein Negative Urine Glucose (UA) Negative Urine Ketones Negative Ur Blood (Man) 2+ H Urine Nitrate Negative Urine Bilirubin Negative Urine Urobilinogen Negative Leukocyte Esterase Rfl 1+ H Urine RBC 0-2 Urine WBC 4-6 H Ur Squamous Epith Cells Occasional Urine Mucus Rare C.trachomatis RNA (TMA) N.gonorrhoeae RNA (TMA) Trichomonas Direct ID Negative 11/20/19 11/20/19 11/20/19 12:02 12:02 12:02 WBC 9.3 RBC 3.68 L Hgb 11.8 L Hct 34.3 L MCV 93.2 MCH 32.1 MCHC 34.4 RDW 12.8 Plt Count 223 MPV 10.2 Immature Gran % (Auto) 0.4 Neut % (Auto) 87.6 H Lymph % (Auto) 5.3 L [place] % (Auto) 6.3 Eos % (Auto) 0.1 Baso % (Auto) 0.3 Lymph # (Auto) 0.49 L [place] # (Auto) 0.6 Eos # (Auto) 0.0 Baso # (Auto) 0.0 Abs Immat Gran (auto) 0.04 H Absolute Neuts (auto) 8.2 H Absolute Nucleated RBC 0.0 Nucleated RBC % 0.0 PT 13.3 INR 1.0 APTT 25.5 Sodium 132 L Potassium 3.4 Chloride 101 Carbon Dioxide 25 Anion Gap 6 L BUN 6 L Creatinine 0.60 L Estim Creat Clear Calc Not Reportable Estimated GFR > 60 Glucose 124 H Calcium 8.9 Total Bilirubin 0.3 AST 18 ALT 9 Alkaline Phosphatase 62 Total Protein 6.0 L Albumin 3.3 L Urine Color Urine Appearance Urine pH Ur Specific [place] Urine Protein Urine Glucose (UA) Urine Ketones Ur Blood (Man) Urine Nitrate Urine Bilirubin Urine Urobilinogen Leukocyte Esterase Rfl Urine RBC Urine WBC Ur Squamous Epith Cells Urine Mucus C.trachomatis RNA (TMA) N.gonorrhoeae RNA (TMA) Trichomonas Direct ID 11/20/19 12:02 WBC RBC Hgb Hct MCV MCH MCHC RDW Plt Count MPV Immature Gran % (Auto) Neut % (Auto) Lymph % (Auto) [place] % (Auto) Eos % (Auto) Baso % (Auto) Lymph # (Auto) [place] # (Auto) Eos # (Auto) Baso # (Auto) Abs Immat Gran (auto) Absolute Neuts (auto) Absolute Nucleated
--- NOTE | 2019-11-21 10:50 | WPDANESPN ---
Anes - Prog Note Post-Op Date/Time: 11/21/19 10:50 Cardiovascular status: normal Respiratory status: normal Airway patency: baseline Mental status: baseline Post-Op hydration status: normal Vital Signs: Last Vital Signs Temp 36.4 C L 11/21/19 06:00 Pulse 70 11/21/19 06:00 Resp 16 11/21/19 06:00 BP 104/49 L 11/21/19 06:00 Pulse Ox 99 11/21/19 06:00 Pain Score (VAS): 2 I/O: Intake & Output 11/20/19 11/21/19 11/21/19 23:59 07:59 15:59 Intake Total 558.75 1450 200 Output Total 2550 600 Balance 558.75 -1100 -400 Laboratory Tests 11/21/19 09:48 11/20/19 12:02 11/20/19 11/20/19 11/20/19 12:02 12:02 12:02 WBC 9.3 RBC 3.68 L Hgb 11.8 L Hct 34.3 L MCV 93.2 MCH 32.1 MCHC 34.4 RDW 12.8 Plt Count 223 MPV 10.2 Immature Gran % (Auto) 0.4 Neut % (Auto) 87.6 H Lymph % (Auto) 5.3 L [place] % (Auto) 6.3 Eos % (Auto) 0.1 Baso % (Auto) 0.3 Lymph # (Auto) 0.49 L [place] # (Auto) 0.6 Eos # (Auto) 0.0 Baso # (Auto) 0.0 Abs Immat Gran (auto) 0.04 H Absolute Neuts (auto) 8.2 H Absolute Nucleated RBC 0.0 Nucleated RBC % 0.0 PT 13.3 INR 1.0 APTT 25.5 Sodium Potassium Chloride Carbon Dioxide Anion Gap BUN Creatinine Estim Creat Clear Calc Estimated GFR Glucose Calcium Total Bilirubin AST ALT Alkaline Phosphatase Total Protein Albumin Urine Color Urine Appearance Urine pH Ur Specific [place] Urine Protein Urine Glucose (UA) Urine Ketones Ur Blood (Man) Urine Nitrate Urine Bilirubin Urine Urobilinogen Leukocyte Esterase Rfl Urine RBC Urine WBC Ur Squamous Epith Cells Urine Mucus C.trachomatis RNA (TMA) Pending N.gonorrhoeae RNA (TMA) Pending Trichomonas Direct ID 11/20/19 11/20/19 11/20/19 12:02 12:05 12:52 WBC RBC Hgb Hct MCV MCH MCHC RDW Plt Count MPV Immature Gran % (Auto) Neut % (Auto) Lymph % (Auto) [place] % (Auto) Eos % (Auto) Baso % (Auto) Lymph # (Auto) [place] # (Auto) Eos # (Auto) Baso # (Auto) Abs Immat Gran (auto) Absolute Neuts (auto) Absolute Nucleated RBC Nucleated RBC % PT INR APTT Sodium 132 L Potassium 3.4 Chloride 101 Carbon Dioxide 25 Anion Gap 6 L BUN 6 L Creatinine 0.60 L Estim Creat Clear Calc Not Reportable Estimated GFR > 60 Glucose 124 H Calcium 8.9 Total Bilirubin 0.3 AST 18 ALT 9 Alkaline Phosphatase 62 Total Protein 6.0 L Albumin 3.3 L Urine Color Straw Urine Appearance Clear Urine pH 6.0 Ur Specific [place] 1.004 Urine Protein Negative Urine Glucose (UA) Negative Urine Ketones Negative Ur Blood (Man) 2+ H Urine Nitrate Negative Urine Bilirubin Negative Urine Urobilinogen Negative Leukocyte Esterase Rfl 1+ H Urine RBC 0-2 Urine WBC 4-6 H Ur Squamous Epith Cells Occasional Urine Mucus Rare C.trachomatis RNA (TMA) N.gonorrhoeae RNA (TMA) Trichomonas Direct ID Negative 11/21/19 09:48 WBC 6.9 RBC 2.95 L Hgb 9.5 L Hct 27.9 L MCV 94.6 MCH 32.2 MCHC 34.1 RDW 13.0 Plt Count 207 MPV 10.3 Immature Gran % (Auto) Neut % (Auto) Lymph % (Auto) [place] % (Auto) Eos % (Auto) Baso % (Auto) Lymph # (Auto) [place] # (Auto) Eos # (Auto) Baso # (Auto) Abs Immat Gran (auto) Absolute Neuts (auto) Absolute Nucleated RBC Nucleated RBC % PT INR APTT Sodium Potassium Chloride Carbon Dioxide Anion Gap BUN Creatinine Estim Creat Clear Calc Estimated GFR Glucose Calcium Total Bilirubin AST ALT Alkaline Phosphatase Total Protein Albumin Urine Color Urine Appearance Urine pH Ur Specific [place] Urine Protein Urine Glucose (UA) Urine Ketones Ur Blood (Man) Urine Nitrate Urine Bilirubin Ur
[2019-11-21 11:51] VITALS: BP 104/58; PULSE 74; RESP 16; TEMP 36.7; O2SAT 99
== END 2019-11-21 12:35 | disposition home or self-care (01) ==
LOC: ANHED 14:41 → ANHSURGERY 14:54 → ANH2MED 19:30
PROVIDERS: Admitting Provider Obstetrics & Gynecology; Emergency Provider Emergency Medicine; PCP Internal Medicine; Visit Provider Obstetrics & Gynecology
PROC: (CPT 49320; principal; 2019-11-20 16:15)
PROC: (CPT 59812; 2019-11-20 16:15)
DX: O03.4 Incomplete spontaneous abortion without complication (principal); D25.9 Leiomyoma of uterus, unspecified
CPT/HCPCS: 59812; 49320; 36415; 71045; 76856; 80053; 81001; 85025; 85027; 85610; 85730; 87040; 87070; 87491; 87591; 87808; 88305; 96361; 96365; 96366; 96367; 96372; 96375; 99285; A9270; G0378; J0131; J0330; J0690; J1100; J1580; J1885; J2210; J2250; J2405; J2704; J2710; J3010; J7030; J7120

== ENCOUNTER 2020-01-17 14:53 | Outpatient (CLI) | payer OTHER, SELFPAY ==
--- NOTE | ~2020-01-17 | MR_ITS ---
EXAMINATION: MR pelvis wo/w con DATE: 01/17/2020 16:02 INDICATION: Uterine leiomyoma TECHNIQUE: Magnetic resonance imaging (MRI) of the pelvis was performed without and with 14 mL Multih ance intravenous contrast. Fullfield sequences of the pelvis included axial and coronal T2-weighted S S FSE, coronal 2D FIESTA, axial T1-weighted FSPGR, axial dual-echo T1-weighted FSPGR and axial T1 stefani ghted LAVA. Small field of view sequences included axial, sagittal and coronal T2-weighted FSE cente red on the uterus and adnexa. Postcontrast sequences included a time course axial T1-weighted LAVA w ith fullfield of view of the pelvis. COMPARISON: Ultrasound dated 11/20/2019 FINDINGS: Uterine is enlarged with at least 10 uterine masses with varying enhancement patterns consistent with uterine fibroids. The majority are either nonenhancing or with small amount of peripheral enhancemen t, the largest measuring up tor 3.9 cm. A few are enhancing are predominantly enhancing the largest a posterior subserosal fibroid measuring up to 5.4 cm. These fibroids distort the endometrial complex which does not appear thickened at the lower uterine segment. The endometrial canal at the uterine fu ndus is distended by a region of enhancement with irregular margins measures 3.7 x 2.6 x 3.2 cm. A fe w subcentimeter T2 hyperintense nonenhancing nabothian cysts at the cervix. Tampon within the vaginal vault. Bladder is normal. Visualized portions of the bowels are unremarkable. Trace amount of likely physiologic free fluid in the pelvis. A couple T2 hyperintense nonenhancing follicles at the right o vary with an millimeters nonenhancing T1 hypointense small hemorrhagic cyst at the right ovary. Left ovary is unremarkable. No pathologically enlarged pelvic or inguinal lymphadenopathy. Bones are unrem arkable. IMPRESSION: 1. Fibroid uterus. 2. 3.7 x 2.6 x 2.2 cm enhancing lesion within the endometrial canal at the fundus most likely represe nting a subserosal fibroid or endometrial polyp. Differential would include retained products of conc eption however be considered less likely given the significant. If time elapsed since the . Consider hysteroscopy for further evaluation. Reviewed, dictated and finalized at location A. ANIC ASSISTANT IMPRESSION: 1. Fibroid uterus. 2. 3.7 x 2.6 x 2.2 cm enhancing lesion within the endometrial canal at the fund us most likely representing a subserosal fibroid or endometrial polyp. Differen tial would include retained products of conception however be considered less l ikely given the significant. If time elapsed since the . Consider hyst eroscopy for further evaluation.
[2020-01-17 15:24] LABS: Estimated Glomerular Filt Rate > 60
== END 2020-01-17 14:54 | disposition home or self-care (01) ==
PROVIDERS: PCP Internal Medicine; Visit Provider Obstetrics & Gynecology
DX: D25.9 Leiomyoma of uterus, unspecified (principal)
CPT/HCPCS: 72197; A9577

== ENCOUNTER 2020-04-24 09:18 | Outpatient (CLI) | payer OTHER, SELFPAY ==
[2020-04-25 10:39] LABS: Hematocrit 35.5 % (37.0-47.0); Hemoglobin 11.2 g/dL (12.0-15.0); Mean Corpuscular HGB Conc 31.5 g/dl (32-36); Mean Corpuscular Hemoglobin 27.2 pg (26-34); Mean Corpuscular Volume 86.2 fl (80-100); Mean Platelet Volume 10.8 fl (7.4-10.4); Platelet Count Result 309 k/mm3 (150-375); Red Blood Count 4.12 M/mm3 (4.2-5.4); Red Cell Distribution Width 15.7 % (11.5-14.5); White Blood Count 5.8 K/mm3 (4.5-10.0)
== END 2020-04-24 09:19 | disposition home or self-care (01) ==
LOC: ANHBWCLAB 09:19
PROVIDERS: PCP Internal Medicine; Visit Provider Obstetrics & Gynecology
DX: Z01.818 Encounter for other preprocedural examination (principal)
CPT/HCPCS: 36415; 85027

== ENCOUNTER → 2020-04-29 00:21 | Outpatient (CLI) | payer OTHER, SELFPAY ==
[2020-04-29 19:48] LABS: SARS-CoV-2 RNA PCR Negative
== END ==
PROVIDERS: PCP Internal Medicine; Visit Provider Obstetrics & Gynecology
DX: Z01.812 Encounter for preprocedural laboratory examination (principal); Z20.822 Contact with and (suspected) exposure to COVID-19
CPT/HCPCS: C9803; U0003; U0005

== ENCOUNTER 2020-05-02 12:07 | Outpatient (CLI) | payer OTHER, SELFPAY | END 2020-05-02 12:08 | disposition home or self-care (01) | PROVIDERS: PCP Internal Medicine; Visit Provider Obstetrics & Gynecology | DX: D21.9 Benign neoplasm of connective and other soft tissue, unspecified (principal); Z01.818 Encounter for other preprocedural examination | CPT/HCPCS: 36415; 86850; 86900; 86901 ==

== ENCOUNTER 2020-05-03 10:35 | Inpatient (IN) | payer OTHER, SELFPAY ==
[2020-05-01 08:12] VITALS: BMI 26.2
[2020-05-03] VITALS (17 sets, daily range): BP systolic 97–122; BP diastolic 55–75; PULSE 60–95; RESP 12–20; TEMP 36.1–36.9; O2SAT 97–100
--- NOTE | 2020-05-03 06:19 | PM.IMHP ---
H&P: HPI History of Present Illness Date/Time: 05/03/20 06:19 Chief Complaint: Symptomatic fibroid uterus. Narrative: Julia Clemente is a 40 year old female with history of irregular bleeding and fibroid uterus. She has had irregular bleeding since Nov 2019 after she had a demise and retained placenta. The placenta was retained along where she was noted to have a large fibroid. After the miscarriage she subsequently had two Dand C for retained product. She has had irregular bleeding since then which was improved after second D and C but still present. She has had an MRI which showed approximately 10 fibroids the larges measuring approximately 5.4 cm. There is an area at the fundus which could be fibroid or polyp or retained tissue. This is where the palcenta was most adherent. She has had a regular period over the past two months. She desires future and desires for the fibroids to be removed before attempting . She is aware of the recommended wait time after a myomectomy and possible need for cesearean section. She has been counseled regarding risk of both procedures and benefits. She has been given option of expectant management. She has declined any optoins for hormonal treatment of irregular bleeding in the past and does not want hormonal management in the future if it started back. Review of Systems Review of Systems: All systems reviewed & are unremarkable except as noted in HPI and below Cardiovascular: Cardiovascular: Reports no additional cardiovascular complaints, Denies chest pain and Denies dyspnea Respiratory: Respiratory: Reports no additional respiratory complaints and Denies dyspnea Gastrointestinal: Gastrointestinal: Reports abdominal pain, Denies change in bowel habits, Denies diarrhea, Denies nausea and Denies vomiting Genitourinary: Genitourinary: Reports pelvic pain Musculoskeletal: Musculoskeletal: Reports back pain Integumentary/Breasts: Skin/Breast: Reports system reviewed and no additional complaints, except as docu Neurologic: Reports system reviewed and no additional complaints, except as documented PMFSH Past Medical History Medical History AVM (arteriovenous malformation) IUFD at less than 20 weeks of gestation Missed No active medical problems Retained products of conception after miscarriage Surgical History Surgical History Hx of brain surgery AVM Brain surgery S/P appendectomy S/P dilation and curettage Social History Social History Smoking status: Never smoker Second hand tobacco smoke exposure: Yes Alcohol intake: never Substance use: never Substance use type: does not use Living arrangements: with family Gender identity (if verbalized by the patient): Female Spiritual care concerns: No Meds Home Medications and Allergies Home Medications Medication Instructions Recorded Confirmed Type No Home Medications 02/15/20 05/01/20 History Allergies Allergy/AdvReac Type Severity Reaction Status Date / Time latex Allergy Intermediate rash Verified 05/01/20 08:11 Penicillins Allergy Intermediate hives Verified 05/01/20 08:11 mahamed Allergy Swelling Verified 05/01/20 08:11 Exam Const: Orientation/consciousness: oriented to person and oriented to place HENMT: Head: normal to inspection Eyes: General: appearance normal, both eyes and all related structures Resp: Effort & Inspection: normal respiratory effort Auscultation: clear to auscultation bilaterally Cardio: Rate: regular rate Rhythm: regular rhythm GI: Inspection: normal to inspection GI Palp: No Rebound tenderness present : External Female Exam: normal external appearance Speculum Exam - Vagina: normal appearance of the vagina Speculum Exam - Cervix: normal appearance of the cervix Bimanual
[2020-05-03] MEDS: ACETAMINOPHEN 500 MG TABLET 1000 MG PO (07:06)
[2020-05-03] MEDS: KETOROLAC 15 MG/ML VIAL (*BKC) IV PUSH (07:07)
[2020-05-03] MEDS: LACTATED RINGERS 1,000 ML 30 ML IV CONT ×3 (07:08→11:21)
--- NOTE | 2020-05-03 07:17 | WPDANESEPPF ---
Anes - Initial Pre Proc Eval Procedure: Operation Date: 05/03/20 07:30 Proposed Procedures p Abdominal Myomectomy - Dequan Galarza MD Date/Time: 05/03/20 07:17 Surgeon: Dequan Galarza MD Pre Op Diagnosis: uterine fibroids Patient Data Age: 40 Gender: F Height: 5 ft 6 in Weight: 73.6 kg Last Vital Signs Temp 97.5 F L 05/03/20 06:27 Pulse 83 05/03/20 06:27 Resp 18 05/03/20 06:27 BP 122/75 05/03/20 06:27 Pulse Ox 100 05/03/20 06:27 Allergies Allergy/AdvReac Type Severity Reaction Status Date / Time latex Allergy Intermediate rash Verified 05/01/20 08:11 Penicillins Allergy Intermediate hives Verified 05/01/20 08:11 mahamed Allergy Swelling Verified 05/01/20 08:11 Home Medications Medication Instructions Recorded Confirmed Type No Home Medications 02/15/20 05/03/20 History Patient hx anesthesia problems: none Family hx anesthesia problems: none PMFSH Past Medical History Medical History AVM (arteriovenous malformation) IUFD at less than 20 weeks of gestation Missed No active medical problems Retained products of conception after miscarriage Surgical History Surgical History Hx of brain surgery AVM Brain surgery S/P appendectomy S/P dilation and curettage Social History Social History Smoking status: Never smoker Second hand tobacco smoke exposure: Yes Alcohol intake: never Substance use: never Substance use type: does not use Living arrangements: with family Gender identity (if verbalized by the patient): Female Spiritual care concerns: No Anes - Eval Final PreProcedure Day of Procedure 05/03/20 07:17 Patient weight: normal Heart: regular rate and rhythm Lungs: clear to auscultation Airway: Mallampati scale class II Neurological: alert and oriented Last oral intake: >/= 8 hours ASA classification: II Emergent: no Anesthetic plan: proceed Anesthesia type and monitoring: general ETT and standard monitoring Informed Consent: The patient's anesthetic plan and its attendant risks and benefits were discussed with the patient/family/POA. Questions were solicited and answers provided to the satisfaction of the patient/family/POA.
--- NOTE | 2020-05-03 07:29 | WPDHPUPDATE1 ---
History and Physical Update Update Date/Time: 05/03/20 07:29 History and Physical has been reviewed, including an updated exam of the patient. There are NO changes in the patient's condition. Risks, benefits, and alternatives have been discussed and questions answered. Patient agrees to proceed with procedure.
[2020-05-03] MEDS: GENTAMICIN SULFATE INJ 370 MG in DEXTROSE 5% 100 ML 100 MG IVPB (07:36)
[2020-05-03] MEDS: CLINDAMYCIN 900 MG/D5W 50 ML 900 MG/50 ML PIGGYBACK 50 MG IVPB (07:55)
--- NOTE | 2020-05-03 10:19 | PM.OP ---
Procedure Note - Brief Procedure Note - Brief Date of procedure: 05/03/20 Pre-op diagnosis: uterine fibroids 2. Abnormal uterine bleeding. Post-op diagnosis: same Procedure performed: 1. Diagnostic hysteroscopy. 2. Abdominal myomectomy. Anesthesia: GETA Surgeon: Dequan Galarza MD Sewage Reticulation Drafting Officer: Willi Estimated blood loss (mL): 50 Drains: No Packing: No Pathology: yes (multiple fibroids) Complications: No immediate complications Condition: stable Disposition: PACU Findings: Normal uterine cavity. Multiple intramural fibroids, one small subserosal fibroid. Did enter endometrial cavity with removal of the larger, 5cm posterior lower uterine segment fibroid. Normal appearing fallopian tubes and ovaries.
[2020-05-03] MEDS: fentaNYL CITRATE INJ (*CRX) 100 MCG/2 ML VIAL 25 MCG IV PUSH ×10 (10:40→11:36)
[2020-05-03] MEDS: HYDROmorphone HCL INJ (*CRX) 1 MG/ML SYR 0.5 MG IV PUSH ×6 (11:15→12:05)
--- NOTE | 2020-05-03 11:19 | PM.PROC ---
Procedure Note - Detailed Date of procedure: 05/03/20 Pre-op diagnosis: uterine fibroids 2. Abnormal uterine bleeding Post-op diagnosis: same Procedure performed: 1. Diagnostic hysteroscopy 2. Abdominal myomectomy. Description of procedure: After informed consent was obtained patient was taken to the operating room. General endotracheal anesthesia was administered. She was placed in low lithotomy position and prepped and draped in sterile fashion attention was turned to the vagina speculum was inserted single-tooth tenaculum placed on anterior lip of the cervix the uterus was sounded to 8 cm the cervix was dilated to a 9 Loo dilator. The hysteroscope was inserted the uterine cavity appeared normal there are no lesions there was no proliferative endometrial lining. the hysteroscope was removed. With the new sterile gloves and gown attention was turned to the abdomen a Pfannenstiel skin incision was made with the scalpel. The subcutaneous tissue was dissected down with cautery. The fascia was incised in midline with the scalpel. The fascia was extended bilaterally with Enamorado scissors. The fascia was from rectus muscles superiorly and inferiorly bluntly and sharply. The peritoneum was identified and entered bluntly. The pelvic organs were visualized. Patient was placed in mild Trendelenburg position. The uterus was elevated out of the pelvis with using the uterine manipulator. The uterus was palpated there were 2 larger lower posterior fibroids and there were 2 anterior that were palpated 1 small subserosal and a small lower anterior fibroid was palpated. Attention was turned to the anterior middle uterine area where the to intramural fibroids were palpated. Vasopressin was injected into the muscle area. The vasopressin that was used was 20 units in 100 cc of saline. The anterior uterus over the fibroid was incised with the cautery. This was incised to the point where the fibroid was visualized. The fibroid was grasped with a towel clamp the fibroid was dissected from the surrounding tissue using a Ave clamp. Also used cautery. The area where the vessels supplying the fibroid was clamped and cauterized. In this fibroid was removed. Lateral to this the other fibroid was palpated and this was grasped with the towel clamp this was shelled out using the Ave and the cautery and the vessel that was supplying this was clamped and the fibroid was removed. Could not palpate any fibroids that could be reached from this incision the myometrium was closed with several sutures of 0 Vicryl in a [id number] fashion. Hemostasis was noted. A 2nd layer with 3 stitches of eewwal-oh-kezur of 0 Vicryl were used to approximate the myometrium. Approximation was noted. It was hemostatic. This incision was later closed in a running fashion with a baseball stitch after the posterior fibroids were removed. Attention was then turned to the posterior uterus and to larger lower uterine fibroids were palpated vasopressin was used over the area that was middle of the 2 fibroids incision was made and the larger fibroid on the left was grasped with a towel clamp this was dissected out of the muscle using cautery and also Ave clamp and towel clamps the vessel that was supplying it was clamped and cauterized it did appear that the cavity was entered a small entrance into the cavity with removal of this fibroid. Attention was then turned to the fibroid that was palpated to the right of this incision was made and the Jones in the myometrium through the same incision and the fibroid was grasped with a towel clamp and dissected using Ave and cautery and was removed. Could there was another fibroid that was anterior to this which was palpated and was removed. The myometrium was closed in multiple layers with exsjhi-uv-gxpdn 0 Vicryl. In a 2nd layer of 0 Vicryl was used. The incision was closed the serosa was closed in a baseball fashion with 0 Vicryl hemostasis was noted
[2020-05-03] MEDS: ONDANSETRON INJ 4 MG/2 ML VIAL IV PUSH (11:47)
[2020-05-03] MEDS: diphenhydrAMINE HCl INJ 50 MG/ML VIAL 12.5 MG IV PUSH ×2 (11:48→12:01)
--- NOTE | 2020-05-03 12:35 | PC.NURSE ---
This patient, Julia Clemente, was received from PACU on 05/03/20 at 1235. Patient oriented to unit routines. Pt groggy falling in and out of sleep.
[2020-05-03] MEDS: FENTANYL 600MCG/NS30MLPCA(*CRX 600 MCG/30 ML PCA.VIAL IV CONT (12:53)
[2020-05-03] MEDS: HYDROcodone/acetaminophen (*CRX) 5-325 MG TABLET 1 TAB PO ×2 (19:46→21:20)
[2020-05-03] MEDS: SIMETHICONE 80 MG TAB.CHEW PO (21:20)
[2020-05-03] MEDS: IBUPROFEN 600 MG TABLET PO (21:20)
--- NOTE | 2020-05-03 23:38 | PC.NURSE ---
Pt was able to pedraza at bedside for 20 minutes - pt refused getting to chair due to pain being too much . Pt stated she needs more rest before I get up, I'm so sore and can barely move . RN will attempt to get pt to chair later.
[2020-05-04 00:07] VITALS: BP 101/51; PULSE 94; RESP 18; TEMP 37.1
[2020-05-04 00:38] VITALS: BP 105/64; PULSE 90; RESP 18; TEMP 36.9
[2020-05-04 05:00] VITALS: BP 95/59; PULSE 60; RESP 17; TEMP 36.7
[2020-05-04] MEDS: SIMETHICONE 80 MG TAB.CHEW PO ×3 (05:03→21:37)
[2020-05-04] MEDS: HYDROcodone/acetaminophen (*CRX) 10-325 MG TABLET 1 TAB PO ×5 (05:04→23:37)
[2020-05-04] MEDS: IBUPROFEN 600 MG TABLET PO (05:04)
[2020-05-04 06:45] VITALS: BP 100/58; PULSE 72; RESP 18; TEMP 36.9
--- NOTE | 2020-05-04 07:43 | WPDANESPN ---
Anes - Prog Note Post-Op Date/Time: 05/04/20 07:43 Cardiovascular status: normal Respiratory status: normal Airway patency: baseline Mental status: baseline Post-Op hydration status: normal Vital Signs: Last Vital Signs Temp 36.7 C 05/04/20 05:00 Pulse 60 05/04/20 05:00 Resp 17 05/04/20 05:00 BP 95/59 L 05/04/20 05:00 Pulse Ox 99 05/03/20 19:42 Pain Score (VAS): 0 I/O: Intake & Output 05/03/20 05/03/20 05/04/20 15:59 23:59 07:59 Intake Total 1650 505.5 1500 Output Total 1500 3100 Balance 1650 -994.5 -1600 Post-procedural complaints: none Patient Feedback: Patient satisfied with anesthetic care.
[2020-05-04] MEDS: DOCUSATE SODIUM 100 MG CAPSULE PO ×2 (08:31→17:22)
--- NOTE | 2020-05-04 08:40 | PM.GYNPNOP ---
CLINICAL TRAINING COORDINATOR - A/P Assessment and plan (1) Status post myomectomy: Code(s): Z98.890 - Other specified postprocedural states Status: Acute Assessment and Plan: Encourage ambulation. Will give Toradol IV. Continue oral Stover. Routine post op CBC ordered. Encouraged to advance diet. Postoperative Procedures: Procedures Operation Date: 05/03/20 07:30 Actual Procedures Side Surgeon p Abdominal Myomectomy, hysteroscopy Not Applicable Dequan Galarza MD Time Spent With Patient Time: Total time spent is greater than 50% in coordination of care (as documented) at patient's floor/unit and/or counseling patient: Time with patient: less than 15 minutes CLINICAL TRAINING COORDINATOR- PN:Subj Post-Op Subjective Date/time seen: 05/04/20 08:40 She has not ambulated. She did sat up in chair. Pain is worse with getting up. No flatus. No chest pain. No SOB. No lightheadedness or dizziness. Mild nausea yesterday. Tolerated full liquid. Exam Const: General: comfortable and no acute distress Resp: Effort & Inspection: normal respiratory effort Auscultation: clear to auscultation bilaterally Cardio: Rate: regular rate GI: Other: good BS throughout, appropriate tenderness, slightly distended. Incision intact no drainage. Extrem: Other: nontender, no edema Psych: Mental Status: mental status grossly normal Affect: normal affect CLINICAL TRAINING COORDINATOR - PN: Obj Data Vital Signs Vital Signs: Vital Signs - 24 hr 05/03/20 10:20 05/03/20 10:30 05/03/20 10:45 Temperature 97 F L Pulse Rate 77 80 60 Respiratory Rate 12 12 12 Blood Pressure 105/63 103/59 L 106/64 Pulse Oximetry 100 100 100 05/03/20 11:00 05/03/20 11:15 05/03/20 11:30 Temperature Pulse Rate 68 66 69 Respiratory Rate 12 12 16 Blood Pressure 97/61 L 102/60 105/55 L Pulse Oximetry 98 100 100 05/03/20 11:45 05/03/20 12:00 05/03/20 12:10 Temperature Pulse Rate 74 75 90 Respiratory Rate 12 12 18 Blood Pressure 107/64 103/60 99/65 L Pulse Oximetry 100 99 99 05/03/20 12:53 05/03/20 14:15 05/03/20 15:45 Temperature 97.6 F 98.4 F 98.5 F Pulse Rate 75 84 82 Respiratory Rate 16 16 16 Blood Pressure 105/62 107/67 120/66 Pulse Oximetry 97 100 100 05/03/20 15:54 05/03/20 17:30 05/03/20 17:45 Temperature 98.3 F Pulse Rate 95 Respiratory Rate 18 18 Blood Pressure 102/63 Pulse Oximetry 100 05/03/20 19:42 05/04/20 00:07 05/04/20 00:38 Temperature 98.7 F 98.5 F Pulse Rate 94 90 Respiratory Rate 17 18 18 Blood Pressure 101/51 L 105/64 Pulse Oximetry 99 05/04/20 05:00 Temperature 98.1 F Pulse Rate 60 Respiratory Rate 17 Blood Pressure 95/59 L Pulse Oximetry Intake/Output Intake/Output: Intake & Output 05/01/20 05/02/20 05/03/20 05/04/20 23:59 23:59 23:59 23:59 Intake Total 2264.75 1500 Output Total 1500 3100 Balance 764.75 -1600 Meds/Results Medications: Active Medications Generic Name Dose Route Start Last Admin Trade Name Freq PRN Reason Stop Dose Admin Hydrocodone Bitart/Acetaminophen 1 tab 05/03/20 10:34 05/03/20 21:20 Hydrocodone/Acetaminophen (*Crx) 5-325 Mg Tablet PO 1 tab Q3H PRN Administration Pain Rated 5 or Less Hydrocodone Bitart/Acetaminophen 1 tab 05/03/20 10:34 05/04/20 08:31 Hydrocodone/Acetaminophen (*Crx) 10-325 Mg Tablet PO 1 tab Q3H PRN Administration Pain Rated 6 or Greater Docusate Sodium 100 mg 05/03/20 17:00 05/04/20 08:31 Docusate Sodium 100 Mg Capsule PO 100 mg BID EFREN Administration Dextrose/Sodium Chloride 1,000 mls @ 125 mls/hr 05/03/20 10:35 05/03/20 19:06 Dextrose 5% Sodium Chloride 0.45% IV CONT Not Given .Q8H EFREN Fentanyl Citrate 600 mcg in 30 mls @ 0 mls/hr 05/03/20 12:04 05/03/20 19:42 Fentanyl 600 Mcg/Ns 30 Ml Museum Attendant IV CONT Infused .Q0M PRN Titration BELT LINE FEEDER Management Protocol Per Protocol Ketorolac Tromethamine 30 mg 05/03/20 10:34 Ketorolac 30 Mg/Ml Vial (*Bk) IV PUSH 05/08/20 10:35 Q6H PRN
[2020-05-04 09:01] LABS: Hematocrit 33.5 % (37.0-47.0); Hemoglobin 10.8 g/dL (12.0-15.0); Mean Corpuscular HGB Conc 32.2 g/dl (32-36); Mean Corpuscular Hemoglobin 27.6 pg (26-34); Mean Corpuscular Volume 85.5 fl (80-100); Platelet Count Result 254 k/mm3 (150-375); Red Blood Count 3.92 M/mm3 (4.2-5.4); Red Cell Distribution Width 15.5 % (11.5-14.5); White Blood Count 10.6 K/mm3 (4.5-10.0)
[2020-05-04] MEDS: KETOROLAC 30 MG/ML VIAL (*BKC) IV PUSH (11:17)
--- NOTE | 2020-05-04 11:37 | PC.NURSE ---
Dr. Galarza called in to check on the patient, update given. No new orders recieved at this time.
--- NOTE | 2020-05-04 13:32 | PC.NURSE ---
Patient up walking the halls.
--- NOTE | 2020-05-04 15:30 | PC.NURSE ---
PT introductions made and plan of care discussed per post conduit mechanic surgery, pain management, daily care activities, abdominal binder. PT verbalized understanding of such care.
[2020-05-04] MEDS: HYDROcodone/acetaminophen (*CRX) 5-325 MG TABLET 1 TAB PO (17:24)
[2020-05-04] MEDS: KETOROLAC 10 MG TABLET PO ×2 (17:25→23:36)
[2020-05-04 19:20] VITALS: BP 118/61; PULSE 74; RESP 18; TEMP 36.5; O2SAT 100
[2020-05-05] MEDS: SIMETHICONE 80 MG TAB.CHEW PO (06:43)
[2020-05-05] MEDS: HYDROcodone/acetaminophen (*CRX) 5-325 MG TABLET 1 TAB PO (06:43)
[2020-05-05] MEDS: DOCUSATE SODIUM 100 MG CAPSULE PO (06:46)
[2020-05-05 07:35] VITALS: BP 106/55; PULSE 77; RESP 18; TEMP 36.8; O2SAT 100
--- NOTE | 2020-05-05 09:34 | P.PNOB_ITS ---
CORE DRILL OPERATOR HELPER - A/P Assessment and plan (1) Status post myomectomy: Code(s): Z98.890 - Other specified postprocedural states Status: Acute Assessment and Plan: She has adequate pain control and tolerating regular diet and ambulating. Will discharge today. Discussed discharge precautions. Postoperative Procedures: Procedures Operation Date: 05/03/20 07:30 Actual Procedures Side Surgeon p Abdominal Myomectomy, hysteroscopy Not Applicable Dequan Galarza MD Time Spent With Patient Time: Total time spent is greater than 50% in coordination of care (as documented) at patient's floor/unit and/or counseling patient: Time with patient: less than 15 minutes CORE DRILL OPERATOR HELPER- PN:Subj Post-Op Subjective Date/time seen: 05/05/20 09:34 She has adequate pain control improving. Tolerating regular diet. She is ambulating well. Positive flatus. No leg pain. Exam Const: General: no acute distress Eyes: General: appearance normal, both eyes and all related structures Neck: Neck: normal visual inspection Resp: Effort & Inspection: normal respiratory effort GI: Inspection: normal to inspection Other: appropriate tenderness to palpation, no rebound, incision intact no drainage or erythema Extrem: General: normal to inspection and no calf tenderness bilaterally CORE DRILL OPERATOR HELPER - PN: Obj Data Vital Signs Vital Signs: Vital Signs - 24 hr 05/04/20 19:20 05/05/20 07:35 Temperature 97.7 F 98.3 F Pulse Rate 74 77 Respiratory Rate 18 18 Blood Pressure 118/61 106/55 L Pulse Oximetry 100 100 Intake/Output Intake/Output: Intake & Output 05/02/20 05/03/20 05/04/20 05/05/20 23:59 23:59 23:59 23:59 Intake Total 2264.75 1500 Output Total 1500 3300 Balance 764.75 -1800 Meds/Results Medications: Active Medications Generic Name Dose Route Start Last Admin Trade Name Freq PRN Reason Stop Dose Admin Hydrocodone Bitart/Acetaminophen 1 tab 05/03/20 10:34 05/05/20 06:43 Hydrocodone/Acetaminophen (*Crx) 5-325 Mg Tablet PO 1 tab Q3H PRN Administration Pain Rated 5 or Less Hydrocodone Bitart/Acetaminophen 1 tab 05/03/20 10:34 05/04/20 23:37 Hydrocodone/Acetaminophen (*Crx) 10-325 Mg Tablet PO 1 tab Q3H PRN Administration Pain Rated 6 or Greater Docusate Sodium 100 mg 05/03/20 17:00 05/05/20 06:46 Docusate Sodium 100 Mg Capsule PO 100 mg BID EFREN Administration Ketorolac Tromethamine 10 mg 05/04/20 07:58 05/04/20 23:36 Ketorolac 10 Mg Tablet PO 10 mg Q6H PRN Administration Cramping Ondansetron HCl 4 mg 05/03/20 10:34 Ondansetron Inj 4 Mg/2 Ml Vial IV PUSH Q6H PRN Nausea And Vomiting Simethicone 80 mg 05/03/20 10:34 05/05/20 06:43 Simethicone 80 Mg Tab.Chew PO 80 mg Q2H PRN Administration Gas Labs CBC & Chem 7: 05/04/20 08:53
--- NOTE | 2020-05-05 11:14 | PM.DS ---
DS: Admitting Diagnosis Admitting Diagnosis Admitting Diagnosis: 1. Symptomatic fibroid uterus. 2. Abnormal uterine bleeding. DS: Discharge Diagnosis Discharge Diagnosis (1) Status post myomectomy: Code(s): Z98.890 - Other specified postprocedural states Status: Acute (2) Irregular intermenstrual bleeding: Code(s): N92.1 - Excessive and frequent menstruation with irregular cycle Status: Acute (3) Fibroid uterus: Code(s): D25.9 - Leiomyoma of uterus, unspecified Status: Acute DS: Summary Hospital Course Reason for hospitalization: Planned hysteroscopy and abdominal myomectomy. Hospital Course: Patient admitted for abdominal myomectomy and hysteroscopy on May 03. She underwent an uncomplicated hysteroscopy which was normal. She also had an abdominal myomectomy. She did well during the surgery. Postoperatively she did well. On postop day 1 she had not ambulated much. She had tolerated clear liquids. On postop day 1 later in the day she did increase her ambulation. She did report positive flatus. She stated her pain was better with heating pad and the medication. On postop day 2 patient was doing better. She tolerated regular food. She had ambulated. No problems with urination. Denies any leg pain. I did show her pictures of her procedure. Her questions were answered. She was tolerating regular food and was recommended for discharge on May 05. Time Spent with Patient Time attestation: Total time spent providing and/or coordinating discharge services: Exam Const: General: no acute distress Eyes: General: appearance normal, both eyes and all related structures GI: Inspection: normal to inspection Other: incision healing well Extrem: Other: nontender, no edema Psych: Appearance: grossly normal DS: Data Data Completed and Pending Completed studies during hospitalization: Pending at discharge 05/03/20 09:17 Surgical [PTH] Routine Discharge Plan Discharge Attending physician on discharge: Dequan Galarza Consulting providers: Ag Morel Discharging Clinician: Dequan Galarza Anticipated Discharge Date/Time: 05/05/20 11:41 Patient Disposition: Home, Self-Care Activity: may shower, no straining, may drive after 2 weeks and pelvic rest Diet: regular Wound Care Instructions: follow printed instructions and incision open to air Discharge Instructions: No lifting bending or straining. Call for temperature greater than 100.4 or any leg pain or redness, or drainage or redness from incision. Take pain medication as prescribed. May take over the counter Ibuprofen 600mg every six hours as needed for pain after have completed the Ketoralac ( Toradol). May take over the counter Tylenol or Extra strength Tylenol if not taking the [place]. Pelvic rest. Take Miralax daily if no bowel movement by post op day four. Patient Instructions: Antibiotic Form Stand Alone Forms: General Discharge Information Follow-up/Referrals: Dequan Galarza MD [Physician] - 1 Week Discharge Medications: New hydrocodone-acetaminophen 5-325 mg Tablet See Rx Instructions .ROUTE .COMPLEX PRN (Reason: Pain ) Qty: 30 RF: 0 ketorolac 10 mg Tablet 10 mg PO Q6H PRN (Reason: pain) 4 Days Qty: 14 RF: 0 No Action No Home Medications RF: 0 Date of admission: 05/03/20 10:35 Primary Care Provider: Fuad,Donnie Valente Admitting Provider: Dequan Galarza Attending physician on admission: Dequan Galarza Condition: Stable
== END 2020-05-05 15:28 | disposition home or self-care (01) | DRG 743 ==
LOC: ANHOB2 12:50
PROVIDERS: Admitting Provider Obstetrics & Gynecology; PCP Internal Medicine; Visit Provider Obstetrics & Gynecology
PROC: 0UT94ZZ Resection of Uterus, Percutaneous Endoscopic Approach (ICD-10-PCS; principal; 2020-05-03 07:30)
DX: D25.1 Intramural leiomyoma of uterus (principal); D25.2 Subserosal leiomyoma of uterus; N92.1 Excessive and frequent menstruation with irregular cycle; Z90.49 Acquired absence of other specified parts of digestive tract
CPT/HCPCS: 36415; 85027; 86850; 86900; 86901; 88305; A9270; J1100; J1170; J1200; J1580; J1885; J2250; J2405; J2704; J2710; J3010; J7030; J7120

== ENCOUNTER 2022-01-08 16:52 | Outpatient (CLI) | payer BC, SELFPAY ==
[2022-01-08 17:09] LABS: Hematocrit 41.2 % (37.0-47.0); Hemoglobin 13.6 g/dL (12.0-15.0); Mean Corpuscular Hemoglobin 30.7 pg (26-34); Mean Platelet Volume 9.7 fl (7.4-10.4); Platelet Count Result 321 k/mm3 (150-375); Red Blood Count 4.43 M/mm3 (4.2-5.4); Red Cell Distribution Width 12.7 % (11.5-14.5); White Blood Count 6.6 K/mm3 (4.5-10.0)
[2022-01-08 18:06] LABS: T4 Thyroxine 9.34 ug/dL (5.53-11.0)
[2022-01-13 10:45] LABS: Testosterone Total 11 ng/dL (2-45)
[2022-01-13 16:12] LABS: FSH 46.3 mIU/mL (***); LH 16.7 mIU/mL (***); Progesterone <0.2 ng/mL (***)
== END 2022-01-08 16:53 | disposition home or self-care (01) ==
LOC: ANHLAB 16:54
PROVIDERS: PCP Internal Medicine; Visit Provider Obstetrics & Gynecology
DX: N92.6 Irregular menstruation, unspecified (principal); N92.0 Excessive and frequent menstruation with regular cycle
CPT/HCPCS: 36415; 83001; 83002; 84144; 84403; 84436; 84443; 85027

== ENCOUNTER 2022-01-15 14:49 | Outpatient (CLI) | payer BC, SELFPAY ==
--- NOTE | ~2022-01-15 | US_ITS ---
EXAMINATION: US pelvic complete w TV DATE: 01/15/2022 16:00 INDICATION: Uterine hypertrophy Comparison:Ultrasound dated 11/20/2019 TECHNIQUE: Multiple transabdominal and endovaginal sonographic images of the pelvis performed. FINDINGS: The uterus measures 9.2 x 4.8 x 5.4 cm. There is a uterine fibroid measuring 1.8 x 1.6 x 1. 6 cm. There are nabothian cysts. The endometrial complex measures 8.5 mm. The right ovary measures 2.4 x 1.2 x 1.4 cm and the left ovary measures 2.1 x 1.2 x 1.0 cm. There ar e small follicles in each ovary. Normal doppler signal in both ovaries. There is no free fluid in the pelvis. There are no abnormal masses seen on either side. IMPRESSION: 1. Uterine fibroid measuring 1.8 cm maximum dimension. Reviewed, dictated and finalized at location A.
== END 2022-01-15 14:50 | disposition home or self-care (01) ==
PROVIDERS: PCP Internal Medicine; Visit Provider Obstetrics & Gynecology
DX: N85.2 Hypertrophy of uterus (principal); D25.9 Leiomyoma of uterus, unspecified
CPT/HCPCS: 76830; 76856

== ENCOUNTER 2023-06-10 13:14 | Outpatient (CLI) | payer OTHER, SELFPAY ==
[2023-06-15 08:52] LABS: FSH 40.2 mIU/mL (***); LH 38.7 mIU/mL (***); Progesterone 0.4 ng/mL (***)
== END 2023-06-10 13:15 | disposition home or self-care (01) ==
LOC: ANHLAB 13:15
PROVIDERS: PCP Internal Medicine; Visit Provider Obstetrics & Gynecology
DX: N92.6 Irregular menstruation, unspecified (principal)
CPT/HCPCS: 36415; 83001; 83002; 84144

== ENCOUNTER 2023-07-04 08:55 | Outpatient (CLI) | payer OTHER, SELFPAY ==
[2023-07-04 09:56] LABS: Alanine Aminotransferase 16 U/L (6-35); Albumin Level 4.1 g/dL (3.5-5.1); Alkaline Phosphatase 54 U/L (38-126); Anion Gap 3 mmol/L (4-12); Aspartate Amino Transferase 26 U/L (14-36); Bilirubin,Total 0.3 mg/dL (0.2-1.3); Blood Urea Nitrogen 17 mg/dL (7-17); Calcium 8.8 mg/dL (8.4-10.2); Carbon Dioxide 28 mmol/L (22-30); Chloride 107 mmol/L (98-107); Cholesterol 188 mg/dL (0-200); Estimated Glomerular Filt Rate > 60; Glucose 96 mg/dL (65-110); HDL Direct 56 mg/dL; Potassium 4.3 mmol/L (3.4-5.0); Sodium 138 mmol/L (137-145); Triglycerides 48 mg/dL (<150)
[2023-07-04 10:07] LABS: LDL Cholesterol Direct 114 mg/dL
== END 2023-07-04 08:56 | disposition home or self-care (01) ==
LOC: ANHLAB 08:58
PROVIDERS: PCP Internal Medicine; Visit Provider Internal Medicine
DX: Z00.00 Encounter for general adult medical examination without abnormal findings (principal)
CPT/HCPCS: 36415; 80053; 80061

== ENCOUNTER 2023-09-09 10:49 | Outpatient (CLI) | payer OTHER, SELFPAY ==
--- NOTE | ~2023-09-09 | US_ITS ---
US pelvic complete w TV Ordering provider: Radha Son APRN History: . 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 . Comparison: None. Technique: Transabdominal and endovaginal ultrasound of the pelvis (Doppler ultrasound interrogation techniques used as needed for this exam.) FINDINGS: CERVIX: Normal. UTERUS: Measures 10.7x 6.8x 4.1 cm in length which is within normal limits and is anteverted. Anteri or Fibroid is seen measuring 2.2 x 2.5 x 1.7 cm. ENDOMETRIUM: Normal in thickness measuring 9 mm. (Note: the premenopausal endometrium may measure up to 16 mm when in the secretory phase.) No endometrial masses, cysts or fluid. CUL DE SAC: No free fluid. RIGHT OVARY: Normal in size measuring 2.4x 2.3x 2.4 cm. Normal echotexture. Doppler vascular flow pre sent. Follicle or a cyst is seen measuring 1.6 x 1.4 x 1.8 cm. LEFT OVARY: Normal in size measuring 2.6x 2.3x 1.9 cm. Normal echotexture. Doppler vascular flow pres ent. ADNEXA: Normal. No mass. IMPRESSION: Fibroid uterus. Otherwise, normal pelvic ultrasound. Reviewed, dictated and finalized at location A.
== END 2023-09-09 10:50 ==
PROVIDERS: PCP Internal Medicine; Visit Provider Nurse Practitioner Family
DX: D25.9 Leiomyoma of uterus, unspecified (principal)
CPT/HCPCS: 76830; 76856